=== PATIENT | male | born 1955 | race Caucasian/White ===

== ENCOUNTER 2021-06-25 11:36 | Inpatient (IN) | payer OTHER ==
[~2021-06-25] VITALS: Ht 170.2 cm; Wt 91.6 kg
[2021-06-25] MEDS ORDERED: ACETAMINOPHEN 325 MG TAB PO ONE (12:05)
--- NOTE | 2021-06-25 12:18 | REP ---
INDICATION: DYSPNEA/COUGH. COMPARISON: None. TECHNIQUE: Portable FINDINGS: The technique utilized in obtaining the radiograph has magnified the cardiac silhouette and accentuated the interstitial markings. There is a patchy opacity in the left upper lobe. The heart is not enlarged. The pleural angles are sharp. The osseous structures are within normal limits. IMPRESSION: Findings consistent with left upper lobe pneumonia. <Electronically signed by Tiburcio Matthews > 06/25/21 [id number]
[2021-06-25 12:33] LABS: BASO % 0.2 % (0.0-1.0); HEMATOCRIT 33.5 % (42.0-52.0); HEMOGLOBIN 10.3 g/dl (13.5-17.5); LYMPH # 1.2 10^3/uL (1.5-5.0); LYMPH % 8.4 % (24.0-44.0); MEAN CORPUSCULAR HEMOGLOBIN 23.7 pg (27.0-33.0); MEAN CORPUSCULAR HGB CONC 30.7 g/dl (32.0-36.5); MEAN CORPUSCULAR VOLUME 77.2 fl (80.0-96.0); MONO # 0.7 10^3/uL (0.0-0.8); MONO % 5.2 % (2.0-8.0); NEUTROPHILS # 12.2 10^3/uL (1.5-8.5); NEUTROPHILS % 85.2 % (36.0-66.0); PLATELET COUNT, AUTOMATED 179 10^3/uL (150-450); RED BLOOD COUNT 4.34 10^6/uL (4.30-6.10); WHITE BLOOD COUNT 14.4 10^3/uL (4.0-10.0)
[2021-06-25] MEDS ORDERED: cefTRIAXone SOD 1 GM in D5W MINI-BAG PLUS 50 ML IV ONE (12:45)
[2021-06-25] MEDS ORDERED: AZITHROMYCIN INJ 500 MG, VIAL MATE ADAPTER 1 EACH in NS 250 ML IV ONE (12:45)
[2021-06-25] MEDS ORDERED: [UNRECOGNIZED DRUG - REMARK] INH (12:47)
[2021-06-25 12:54] LABS: ALBUMIN 2.8 GM/DL (3.2-5.2); ALT/SGPT 18 U/L (12-78); BILIRUBIN,DIRECT 0.3 MG/DL (0.0-0.2); BILIRUBIN,TOTAL 0.9 MG/DL (0.2-1.0); BLOOD UREA NITROGEN 43 MG/DL (7-18); CALCIUM LEVEL 8.4 MG/DL (8.8-10.2); CARBON DIOXIDE LEVEL 21 MEQ/L (21-32); CHLORIDE LEVEL 97 MEQ/L (98-107); CK-MB VALUE MASS < 1.0 NG/ML (<3.6); CPK CREATINE PHOSPHOKINASE 394 U/L (39-308); CREATININE FOR GFR 2.84 MG/DL (0.70-1.30); GLOMERULAR FILTRATION RATE 23.9 (>49); GLUCOSE, FASTING 165 MG/DL (70-100); MB/CK RELATIVE INDEX 0.25 (< OR =4); POTASSIUM SERUM 4.7 MEQ/L (3.5-5.1); SODIUM LEVEL 128 MEQ/L (136-145); TOTAL PROTEIN 7.9 GM/DL (6.4-8.2); TROPONIN I < 0.02 NG/ML (< 0.10)
[2021-06-25 13:05] LABS: RSV AMPLIFICATION NEGATIVE (NEGATIVE)
[2021-06-25] MEDS ORDERED: SODIUM CHLORIDE 0.9% 1000ML IV STA (13:41)
--- NOTE | 2021-06-25 13:58 | HPEPDOC ---
[facility] Medical History & Physical Date of Admission Jun 25, 2021 Date of Service: Jun 25, 2021 History and Physical CHIEF COMPLAINT: Short of breath HISTORY OF PRESENT ILLNESS: 65-year-old male with a past medical history of hypertension and COPD. He is a very poor historian and cannot recollect his medications or his past medical history. He presented with worsening shortness of breath that began 5 days ago progressively got worse. He has associated chest pain, which is made worse with coughing and reproducible with palpation of the chest wall. He has reported a cough that is productive. He denies nausea, vomiting, abdominal pain, problems with urination or bowel movements. He has had no known sick contacts. He denies any Covid exposure. Of note, patient does not have any family reportedly. He wishes to remain full code. When he was asked in the event where he could not make any medical decisions who would make time for him he shrugged his shoulders. PAST MEDICAL HISTORY: This was limited because patient was a poor historian PAST SURGICAL HISTORY: Poor historian SOCIAL HISTORY: Lives alone. He denies smoking, drinking, and use of recreational drugs. FAMILY HISTORY: Did not recollect any family history ALLERGIES: Please see below. REVIEW OF SYSTEMS: 10 point review of system was negative except for what is noted in the HPI HOME MEDICATIONS: Please see below. PHYSICAL EXAMINATION: VITAL SIGNS: Please see below General: Lying in bed, no acute distress Head/Neck/Throat: Trachea midline, mucous membranes moist Eyes: Sclera anicteric, PERRLA Thorax: Normal respiratory effort on room air, lungs clear to auscultation bilaterally, no wheezes/rales/rhonchi Cardiovascular: Normal rate, regular rhythm, normal S1, S2; no S3, S4, rubs/gallops/murmurs Abdomen: Bowel sounds present, soft/nontender/nondistended Genitourinary: No CVA tenderness, no Snow in place Musculoskeletal: Moving all extremities, no edema Skin: Poor hygiene of feet Neurologic: AAOx3, speech fluent and goal-directed, no focal deficits, grossly intact LABORATORY DATA: See below. IMAGING: Chest x-ray noted left upper lobe pneumonia MICROBIOLOGY: Please see below. ASSESSMENT/PLAN: 65-year-old male presented with shortness of breath, productive cough, and reproducible chest pain #Sepsis -Meets SIRS criteria and no source of pneumonia. -Patient blood pressure initially recorded was within normal limits. Upon evaluation, his systolic blood pressure was in the 90s. We will initiate 30 cc/kg fluid resuscitation. -Ceftriaxone and azithromycin for pneumonia. Obtain sputum cultures, as well as strep pneumonia and Legionella antigens. #Pneumonia -Management as above #LUCILLE -In setting of sepsis. Continue IV fluids. Avoid nephrotoxic medications. #Hypertension -Hold off on ambulatory antihypertensives at this time. #COPD -We will initiate DuoNeb therapy, until we are able to reconcile his medications #DVT prophylaxis -Heparin subq Vital Signs Vital Signs Date Time Temp Pulse Resp B/P (MAP) Pulse Ox O2 Delivery O2 Flow Rate FiO2 06/25/21 12:30 Nasal Cannula 3.0 06/25/21 12:21 133 22 95 06/25/21 12:01 138/63 (88) 06/25/21 11:36 101.8 Laboratory Data Labs 24H Laboratory Tests 2 06/25/21 11:49: Immature Granulocyte % (Auto) 1.0, Neutrophils (%) (Auto) 85.2H, Lymphocytes (%) (Auto) 8.4L, Monocytes (%) (Auto) 5.2, Eosinophils (%) (Auto) 0.0, Basophils (%) (Auto) 0.2, Neutrophils # (Auto) 12.2H, Lymphocytes # (Auto) 1.2L, Monocytes # (Auto) 0.7, Eosinophils # (Auto) 0.0, Basophils # (Auto) 0.0, Nucleated Red Blood Cells % (auto) 0.0, Anion Gap 10, Glomerular Filtration Rate 23.9L, Calcium Level 8.4L, Total Bilirubin 0.9, Direct Bilirubin 0.3H, Aspartate Amino Transf (AST/SGOT) 22, Alanine Aminotransferase (ALT/SGPT) 18, Alkaline Phosphatase 89, Total Creatine Kinase 394H, Creatine Kinase MB < 1.0, Creatine Kinase MB Relative Index 0.25, Troponin I < 0.02, Total Protein 7.9, Albumin 2.8L, Albumin/Globulin Ratio 0.5 06/25/21 12:02: Lactic Acid Level 2.3*H, Coronavirus (COVID-19)(PCR) NEGATIVE, Influenza Type A (RT-PCR) NEGATIVE, Influenza Type B (RT-PCR) NEGATIVE, Respiratory Syncytial Virus (PCR) NEGATIVE CBC/BMP Laboratory Tests 06/25/21 11:49 Microbiology Microbiology 9/18/21 Blood Culture, Received Pending 06/25/21 Blood Culture, Received Pending Home Medications Scheduled Cholecalciferol (Vitamin D3) (Vitamin D3) 10 Mcg Tablet, 20 MCG PO DAILY Divalproex Sodium (Depakote) 500 Mg Tablet.dr, 500 MG PO BID Lisinopril/Hydrochlorothiazide (Lisinopril-Hctz 20-25 mg Tab) 1 Each Tablet, 4 TAB PO DAILY [facility] HAS 2 TABS DAILY, PT SAYS 4 TABS DAILY Omeprazole (Omeprazole) 20 Mg Capsule.dr, 20 MG PO BID Rosuvastatin Calcium (Rosuvastatin Calcium) 5 Mg Tablet, 5 MG PO QHS Tiotropium Br/Olodaterol HCl (Stiolto Respimat Inhal [place]) 4 Gm Mist.inhal, 2 PUFFS IH DAILY Scheduled PRN Albuterol Sulfate (Ventolin Hfa) 18 Gm Hfa.aer.ad, 2 PUFFS INH QID PRN for SO B/WHEEZING Diphenhydramine HCl (Diphenhydramine HCl) 25 Mg Capsule, 25 MG PO QHS PRN for SLEEP Allergies Coded Allergies: No Known Allergies (Unverified , 06/25/21) A-FIB/CHADSVASC A-FIB History Current/History of A-Fib/PAF?: No LAURA WOODSON M.D. Jun 25, 2021 13:43
[2021-06-25] MEDS: IPRATROPIUM 0.5MG/ALBUTEROL 2.5MG INH SOL UD 3ML (DUONEB) NEB SCH (14:00)
[2021-06-25] MEDS ORDERED: OMEP1CAP73 PO (14:13)
[2021-06-25] MEDS ORDERED: LISI20TA20 PO (14:13)
[2021-06-25] MEDS ORDERED: CHOL400T PO (14:13)
[2021-06-25] MEDS ORDERED: ROSU5TAB5 PO (14:13)
[2021-06-25] MEDS ORDERED: VENTAER INH (14:13)
[2021-06-25] MEDS ORDERED: STIO1AER IH (14:13)
[2021-06-25] MEDS ORDERED: DIPH25CA32 PO (14:13)
[2021-06-25] MEDS ORDERED: DEPA1TAB3 PO (14:13)
[2021-06-25] MEDS ORDERED: HOME MED LIST COMPLETE! XX SCH (14:15)
[2021-06-25] MEDS ORDERED: ALBUTEROL 90 MCG/ACT 8GM HFA INHALER INH PRN (14:25)
[2021-06-25] MEDS ORDERED: PILL CUTTER 1 EACH XX PRN (14:35)
--- NOTE | 2021-06-25 17:23 | ECGEPIP ---
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
[2021-06-25 18:06] VITALS: BP 149/76
[2021-06-25] MEDS: NS 1,000 ML IV SCH (19:43)
[2021-06-25 21:00] VITALS: O2SAT 96
[2021-06-25] MEDS: ACETAMINOPHEN 650MG ER TAB (TYLENOL ARTHRITIS) PO SCH (21:14)
[2021-06-25] MEDS: HEPARIN SOD (PORCINE) 5000UNITS/ML 1ML VIAL/SYRINGE SC SCH (21:14)
[2021-06-25] MEDS: OMEPRAZOLE 20 MG CAP PO SCH (21:15)
[2021-06-25] MEDS: DIVALPROEX 500 MG TAB PO SCH (21:15)
[2021-06-25] MEDS: THIAMINE 100 MG TAB PO SCH (21:15)
[2021-06-25] MEDS: ROSUVASTATIN 10 MG TAB (CRESTOR) PO SCH (21:16)
[2021-06-25 22:00] VITALS: BP 139/72
[2021-06-26] MEDS: NS 1,000 ML IV SCH ×3 (04:20→22:58)
[2021-06-26] MEDS: ACETAMINOPHEN 650MG ER TAB (TYLENOL ARTHRITIS) PO SCH (05:05)
[2021-06-26] MEDS: HEPARIN SOD (PORCINE) 5000UNITS/ML 1ML VIAL/SYRINGE SC SCH ×2 (05:06→13:55)
[2021-06-26 06:00] VITALS: BP 139/72
[2021-06-26 06:02] LABS: HEMATOCRIT 29.7 % (42.0-52.0); HEMOGLOBIN 9.1 g/dl (13.5-17.5); MEAN CORPUSCULAR HEMOGLOBIN 24.1 pg (27.0-33.0); MEAN CORPUSCULAR HGB CONC 30.6 g/dl (32.0-36.5); MEAN CORPUSCULAR VOLUME 78.8 fl (80.0-96.0); PLATELET COUNT, AUTOMATED 139 10^3/uL (150-450); RED BLOOD COUNT 3.77 10^6/uL (4.30-6.10); WHITE BLOOD COUNT 8.9 10^3/uL (4.0-10.0)
[2021-06-26 06:18] LABS: CREATININE FOR GFR 1.7 MG/DL (0.70-1.30); GLOMERULAR FILTRATION RATE 43.3 (>49); PHOSPHORUS LEVEL 2.8 MG/DL (2.5-4.9); POTASSIUM SERUM 4.3 MEQ/L (3.5-5.1)
[2021-06-26] MEDS: IPRATROPIUM 0.5MG/ALBUTEROL 2.5MG INH SOL UD 3ML (DUONEB) NEB SCH ×3 (07:34→20:42)
[2021-06-26] MEDS: DIVALPROEX 500 MG TAB PO SCH ×2 (07:56→21:21)
[2021-06-26] MEDS: THIAMINE 100 MG TAB PO SCH (07:56)
[2021-06-26] MEDS: OMEPRAZOLE 20 MG CAP PO SCH ×2 (07:56→21:21)
--- NOTE | 2021-06-26 10:31 | IPNPDOC ---
Subjective Date Seen The patient was seen on 06/26/21. Subjective Chief Complaint/HPI Patient was seen and examined bedside this morning. He reported feeling "100% better" and stated he was no longer short of breath, and his reproducible chest pain from coughing had resolved. However, he still requires 02 and overnight had a temp. Objective Physical Examination Other physical findings General: Lying in bed, no acute distress Head/Neck/Throat: Trachea midline, mucous membranes moist Eyes: Sclera anicteric, no erythema or discharge appreciated b/l Thorax: On 3L nc, lungs clear to auscultation bilaterally, no wheezes/rales/rhonchi Cardiovascular: Normal rate, regular rhythm, normal S1, S2; no S3, S4, rubs/gallops/murmurs Abdomen: Bowel sounds present, soft/nontender/nondistended Genitourinary: No CVA tenderness, no Snow in place Musculoskeletal: Moving all extremities, no edema Skin: Poor hygiene of feet Neurologic: AAOx3, speech fluent and goal-directed, no focal deficits, grossly intact Assessment /Plan Assessment #Sepsis -Meets SIRS criteria and no source of pneumonia. -Remains hemodynamically stable. Lactic acid has down trended. Has a temp likely the reason for his tachy. -Continue w/ Ceftriaxone and azithromycin for pneumonia. Obtain sputum cultures, as well as strep pneumonia and Legionella antigens. #Pneumonia -Management as above #Hypoxia -Likely due to PNA. -concern for PE, Wells score is 3 and d-dimmer is elevated. However, due to his renal function unable to do a cta of the chest, and no one in house to do v/q scan. stat For now, will start pt systemic anticoagulation empirically until we are able to obtain imaging. #LUCILLE -In setting of sepsis. Continue IV fluids. Avoid nephrotoxic medications. #Hypertension -Hold off on ambulatory antihypertensives at this time. #COPD -We will initiate DuoNeb therapy, until we are able to reconcile his medications #DVT prophylaxis -Heparin subq Plan/VTE VTE Prophylaxis Ordered?: Yes VS, I&O, 24H, Fishbone Vital Signs/I&O Vital Signs Date Time Temp Pulse Resp B/P (MAP) Pulse Ox O2 Delivery O2 Flow Rate FiO2 06/26/21 06:44 99.7 06/26/21 06:00 115 20 139/72 (94) 92 Nasal Cannula 3.0 I&O- Last 24 Hours up to 6 AM 06/26/21 06:00 Intake Total 3180 ml Output Total 0 ml Balance 3180 ml Laboratory Data 24H LABS Laboratory Tests 2 06/25/21 11:49: Immature Granulocyte % (Auto) 1.0, Neutrophils (%) (Auto) 85.2H, Lymphocytes (%) (Auto) 8.4L, Monocytes (%) (Auto) 5.2, Eosinophils (%) (Auto) 0.0, Basophils (%) (Auto) 0.2, Neutrophils # (Auto) 12.2H, Lymphocytes # (Auto) 1.2L, Monocytes # (Auto) 0.7, Eosinophils # (Auto) 0.0, Basophils # (Auto) 0.0, Nucleated Red Blood Cells % (auto) 0.0, Anion Gap 10, Glomerular Filtration Rate 23.9L, Calcium Level 8.4L, Total Bilirubin 0.9, Direct Bilirubin 0.3H, Aspartate Amino Transf (AST/SGOT) 22, Alanine Aminotransferase (ALT/SGPT) 18, Alkaline Phosphatase 89, Total Creatine Kinase 394H, Creatine Kinase MB < 1.0, Creatine Kinase MB Relative Index 0.25, Troponin I < 0.02, Total Protein 7.9, Albumin 2.8L, Albumin/Globulin Ratio 0.5 06/25/21 12:02: Lactic Acid Level 2.3*H, Procalcitonin 8.88, Coronavirus (COVID-19)(PCR) NEGATIVE, Influenza Type A (RT-PCR) NEGATIVE, Influenza Type B (RT-PCR) NEGATIVE, Respiratory Syncytial Virus (PCR) NEGATIVE 06/25/21 14:26: Troponin I 0.02 06/25/21 16:54: Lactic Acid Followup at 4 Hours 2.1*H 06/25/21 16:55: Troponin I < 0.02 06/25/21 18:41: Methicillin-Resist S.aureus DNA PCR NOT DETECTED 06/25/21 22:06: Lactic Acid Level 1.0 06/26/21 05:34: Nucleated Red Blood Cells % (auto) 0.0, Anion Gap 7L, Glomerular Filtration Rate 43.3L, Calcium Level 8.0L, Phosphorus Level 2.8, Magnesium Level 2.0 06/26/21 08:15: CBC/BMP Laboratory Tests 06/25/21 11:49 06/26/21 05:34 Microbiology Microbiology 06/25/21 Blood Culture, Received Pending 06/25/21 Blood Culture, Received Pending LAURA WOODSON M.D. Jun 26, 2021 10:16
[2021-06-26] MEDS: guaiFENesin SYRUP 200 MG/10 ML UDC PO PRN (12:45)
[2021-06-26] MEDS ORDERED: cefTRIAXone SOD 1 GM in D5W MINI-BAG PLUS 50 ML IV SCH (13:00)
[2021-06-26] MEDS ORDERED: ACETAMINOPHEN 500 MG TAB PO ONE (13:00)
[2021-06-26] MEDS ORDERED: AZITHROMYCIN INJ 500 MG, VIAL MATE ADAPTER 1 EACH in NS 250 ML IV SCH (14:00)
[2021-06-26 14:30] VITALS: BP 141/73
[2021-06-26] MEDS: PIPERACILLIN/TAZOBACTAM SOD 3.375 GM in D5W MINI-BAG PLUS 50 ML IV SCH ×2 (17:59→23:32)
[2021-06-26 21:00] VITALS: O2SAT 93
[2021-06-26] MEDS: APIXABAN 5 MG TAB (ELIQUIS) PO SCH (21:20)
[2021-06-26] MEDS: ROSUVASTATIN 10 MG TAB (CRESTOR) PO SCH (21:21)
[2021-06-26 22:00] VITALS: BP 138/72
[2021-06-27] VITALS (9 sets, daily range): BP systolic 95–140; BP diastolic 56–65; O2SAT 86–90
[2021-06-27] MEDS: IPRATROPIUM 0.5MG/ALBUTEROL 2.5MG INH SOL UD 3ML (DUONEB) NEB SCH ×6 (01:34→23:58)
[2021-06-27] MEDS: NS 1,000 ML IV SCH ×3 (03:20→19:20)
[2021-06-27] MEDS: PIPERACILLIN/TAZOBACTAM SOD 3.375 GM in D5W MINI-BAG PLUS 50 ML IV SCH ×3 (05:33→17:22)
[2021-06-27 06:17] LABS: HEMATOCRIT 26.5 % (42.0-52.0); HEMOGLOBIN 8.1 g/dl (13.5-17.5); MEAN CORPUSCULAR HEMOGLOBIN 24.7 pg (27.0-33.0); MEAN CORPUSCULAR HGB CONC 30.6 g/dl (32.0-36.5); MEAN CORPUSCULAR VOLUME 80.8 fl (80.0-96.0); PLATELET COUNT, AUTOMATED 125 10^3/uL (150-450); RED BLOOD COUNT 3.28 10^6/uL (4.30-6.10); WHITE BLOOD COUNT 4.7 10^3/uL (4.0-10.0)
[2021-06-27] MEDS: ACETAMINOPHEN TAB 650MG DOSE (2X325MG) PO PRN (06:20)
[2021-06-27 06:33] LABS: BLOOD UREA NITROGEN 19 MG/DL (7-18); CALCIUM LEVEL 7.8 MG/DL (8.8-10.2); CARBON DIOXIDE LEVEL 26 MEQ/L (21-32); CHLORIDE LEVEL 103 MEQ/L (98-107); CREATININE FOR GFR 1.24 MG/DL (0.70-1.30); GLOMERULAR FILTRATION RATE > 60.0 (>49); GLUCOSE, FASTING 123 MG/DL (70-100); MAGNESIUM LEVEL 1.9 MG/DL (1.8-2.4); PHOSPHORUS LEVEL 1.9 MG/DL (2.5-4.9); POTASSIUM SERUM 4.2 MEQ/L (3.5-5.1); SODIUM LEVEL 137 MEQ/L (136-145)
[2021-06-27] MEDS ORDERED: ISOVUE-370 76% 100ML VIAL As Ordered ONE (07:15)
[2021-06-27] MEDS: OMEPRAZOLE 20 MG CAP PO SCH ×2 (08:16→21:55)
[2021-06-27] MEDS: APIXABAN 5 MG TAB (ELIQUIS) PO SCH (08:16)
[2021-06-27] MEDS: methylPREDNISolone 40MG 1ML VIAL IV SCH ×2 (08:16→17:21)
[2021-06-27] MEDS: DIVALPROEX 500 MG TAB PO SCH ×2 (08:16→21:57)
[2021-06-27] MEDS: THIAMINE 100 MG TAB PO SCH (08:16)
[2021-06-27] MEDS ORDERED: K-PHOS ORIGINAL (POT.ACID PHOSPHATE) 500MG TAB PO ONE (09:00)
[2021-06-27] MEDS ORDERED: IBUPROFEN 600MG TAB PO ONE (10:25)
--- NOTE | 2021-06-27 10:32 | REP ---
INDICATION: r/o pe. COMPARISON: None. TECHNIQUE: Imaging protocol: CT angiography of the chest with IV contrast. Contiguous 3 mm thick axial projection images were obtained through the chest. 2D sagittal and coronal reconstructions were performed. Radiation optimization: All CT scans at this facility use at least one of these dose optimization techniques: automated exposure control; mA and/or kV adjustment per patient size (includes targeted exams where dose is matched to clinical indication); or iterative reconstruction. CONTRAST: 75 cc Isovue 370, IV. FINDINGS: Lower neck: The thyroid gland is normal. There is no supraclavicular lymphadenopathy. Mediastinum: No abnormal masses or lymphadenopathy. Heart/thoracic aorta/pulmonary arterial tree: The heart size is normal. There is no pericardial effusion. There is calcific vascular disease of the thoracic aorta and coronary arteries. There is no thoracic aortic aneurysm or aortic dissection. There are no filling defects in the pulmonary arterial tree. Upper abdomen: Fatty liver infiltration. Calcific vascular disease of the abdominal aorta. Spleen measures 12.6 cm in axial dimension. There are small cysts in both kidneys indeterminate by density. Thoracic esophagus: Normal. Chest wall and axilla: There is mild bilateral gynecomastia. There are few reactive axillary lymph nodes bilaterally. There are no significant bony abnormalities of the chest. Lung parenchyma: There is dense airspace consolidation in the upper lobe of the left lung centered in the lingula. There is chronic interstitial lung disease with posterior basilar subpleural reticulation and a few areas of honeycombing. There is posterior pleural thickening bilaterally. There are no significant pleural effusions. IMPRESSION: 1. Lingular lobar pneumonia. 2. Chronic interstitial lung disease. 3. No evidence of pulmonary emboli. 4. Calcific vascular disease of the thoracoabdominal aorta and coronary arteries. 5. Fatty liver infiltration. 6. Mild splenomegaly. 7. Other findings as noted. <Electronically signed by Grzegorz Cosby > 06/27/21 [id number]
--- NOTE | 2021-06-27 10:38 | IPNPDOC ---
Subjective Date Seen The patient was seen on 06/27/21. Subjective Chief Complaint/HPI Patient was seen and examined at bedside this morning. He reports having fever, chills, and chest pain which is reproducible with cough. He denied headaches, palpitations, abdominal pain, nausea, vomiting, problems with urination or bowel movements. Overnight patient had continuous fevers. Objective Physical Examination Other physical findings Other physical findings General: Lying in bed, no acute distress Head/Neck/Throat: Trachea midline, mucous membranes moist Eyes: Sclera anicteric, no erythema or discharge appreciated b/l Thorax: On 3L nc, lungs clear to auscultation bilaterally, no wheezes/rales/rhonchi Cardiovascular: Normal rate, regular rhythm, normal S1, S2; no S3, S4, rubs/ gallops/murmurs Abdomen: Bowel sounds present, soft/nontender/nondistended Genitourinary: No CVA tenderness, no Snow in place Musculoskeletal: Moving all extremities, no edema Skin: Poor hygiene of feet Neurologic: AAOx3, speech fluent and goal-directed, no focal deficits, grossly intact Assessment /Plan Assessment #Sepsis -Meets SIRS criteria and source of pneumonia. -Remains hemodynamically stable. Lactic acid has down trended. Has a temp likely the reason for his tachy. -Patient continued to spike fevers therefore antibiotics were broadened to Zosyn in addition to azithromycin. Patient has been unable to provide a sputum sample for cultures. Respiratory panel pending. -We will need to apply cooling measures for patient's fever. If proctitis does not work he will need a cooling blanket. #Pneumonia -Management as above #COPD exacerbation -This morning he was in COPD exacerbation. Increase frequency of DuoNeb therapy to q4hrs, add IV steroids #Hypoxia -Likely due to PNA and COPD exacerbation -concern for PE, Wells score is 3 and d-dimmer is elevated. CTA was done this morning and negative for PE. #LUCILLE -Resolved. This was likely prerenal azotemia in setting of sepsis. Considering he got contrast for his CTA we will continue IV fluids today. #Hypertension -Hold off on ambulatory antihypertensives at this time. #DVT prophylaxis -Heparin subcu Plan/VTE VTE Prophylaxis Ordered?: Yes VS, I&O, 24H, Fishbone Vital Signs/I&O Vital Signs Date Time Temp Pulse Resp B/P (MAP) Pulse Ox O2 Delivery O2 Flow Rate FiO2 06/27/21 07:01 102.0 128/58 (81) 06/27/21 06:00 108 20 88 Nasal Cannula 6.0 I&O- Last 24 Hours up to 6 AM 06/27/21 05:59 Intake Total 2290 ml Output Total 2075 ml Balance 215 ml Laboratory Data 24H LABS Laboratory Tests 2 06/26/21 14:43: D-Dimer, Quantitative 2681.84H 06/27/21 05:39: Nucleated Red Blood Cells % (auto) 0.0, Anion Gap 8, Glomerular Filtration Rate > 60.0, Calcium Level 7.8L, Phosphorus Level 1.9#L, Magnesium Level 1.9 CBC/BMP Laboratory Tests 06/27/21 05:39 Microbiology Microbiology 06/25/21 Blood Culture - Preliminary, Resulted No growth after 24 hours . All specim... 06/25/21 Blood Culture - Preliminary, Resulted No growth after 24 hours . All specim... LAURA WOODSON M.D. Jun 27, 2021 10:36
[2021-06-27] MEDS: DOXYCYCLINE HYCLATE 100MG TABLET PO SCH ×2 (11:28→21:55)
[2021-06-27 14:41] LABS: ABG BASE EXCESS -2.3 (-2.0-2.0); ABG O2 SATURATION 88.5 % (95.0-99.0); ABG PARTIAL PRESSURE CO2 41.6 mmHg (35.0-45.0); ABG PARTIAL PRESSURE O2 60.8 mmHg (75.0-100.0); ABG STANDARD HCO3 22.4 MEQ/L (22.0-26.0); ABG TOTAL CO2 24.3 MEQ/L (23.0-31.0)
[2021-06-27] MEDS: ROSUVASTATIN 10 MG TAB (CRESTOR) PO SCH (21:55)
[2021-06-27] MEDS: HEPARIN SOD (PORCINE) 5000UNITS/ML 1ML VIAL/SYRINGE SQ SCH (21:57)
[2021-06-28] VITALS (7 sets, daily range): BP systolic 115–140; BP diastolic 56–64; O2SAT 93
[2021-06-28] MEDS: PIPERACILLIN/TAZOBACTAM SOD 3.375 GM in D5W MINI-BAG PLUS 50 ML IV SCH ×5 (00:19→23:21)
[2021-06-28] MEDS: methylPREDNISolone 40MG 1ML VIAL IV SCH ×4 (00:19→23:22)
[2021-06-28] MEDS: NS 1,000 ML IV SCH (03:03)
[2021-06-28] MEDS: IPRATROPIUM 0.5MG/ALBUTEROL 2.5MG INH SOL UD 3ML (DUONEB) NEB SCH ×5 (03:40→19:24)
[2021-06-28] MEDS: HEPARIN SOD (PORCINE) 5000UNITS/ML 1ML VIAL/SYRINGE SQ SCH ×3 (05:28→20:10)
[2021-06-28 06:11] LABS: HEMATOCRIT 27.6 % (42.0-52.0); HEMOGLOBIN 8.3 g/dl (13.5-17.5); MEAN CORPUSCULAR HEMOGLOBIN 24.3 pg (27.0-33.0); MEAN CORPUSCULAR HGB CONC 30.1 g/dl (32.0-36.5); MEAN CORPUSCULAR VOLUME 80.7 fl (80.0-96.0); PLATELET COUNT, AUTOMATED 132 10^3/uL (150-450); RED BLOOD COUNT 3.42 10^6/uL (4.30-6.10); WHITE BLOOD COUNT 5.1 10^3/uL (4.0-10.0)
[2021-06-28 06:40] LABS: BLOOD UREA NITROGEN 23 MG/DL (7-18); CALCIUM LEVEL 8.5 MG/DL (8.8-10.2); CARBON DIOXIDE LEVEL 23 MEQ/L (21-32); CHLORIDE LEVEL 110 MEQ/L (98-107); CREATININE FOR GFR 1.03 MG/DL (0.70-1.30); GLOMERULAR FILTRATION RATE > 60.0 (>49); GLUCOSE, FASTING 222 MG/DL (70-100); MAGNESIUM LEVEL 2.2 MG/DL (1.8-2.4); PHOSPHORUS LEVEL 2.7 MG/DL (2.5-4.9); POTASSIUM SERUM 4.3 MEQ/L (3.5-5.1); SODIUM LEVEL 140 MEQ/L (136-145)
[2021-06-28] MEDS: OMEPRAZOLE 20 MG CAP PO SCH ×2 (08:11→20:09)
[2021-06-28] MEDS: DOXYCYCLINE HYCLATE 100MG TABLET PO SCH ×2 (08:12→20:09)
[2021-06-28] MEDS: THIAMINE 100 MG TAB PO SCH (08:12)
[2021-06-28] MEDS: DIVALPROEX 500 MG TAB PO SCH ×2 (08:45→20:09)
[2021-06-28] MEDS: ACETAMINOPHEN TAB 650MG DOSE (2X325MG) PO PRN (09:08)
[2021-06-28 15:09] LABS: MYCOPLASMA PNEUMONIAE IgG 1494 U/mL (0-99); MYCOPLASMA PNEUMONIAE IgM <770 U/mL (0-769)
[2021-06-28] MEDS: ROSUVASTATIN 10 MG TAB (CRESTOR) PO SCH (20:09)
[2021-06-28] MEDS ORDERED: GLUCOSE 4GM CHEW TABLET PO PRN (21:30)
[2021-06-28] MEDS ORDERED: DEXTROSE 50% 50 ML SYRINGE IV PRN (21:30)
[2021-06-28] MEDS ORDERED: GLUCAGON INJ 1MG VIAL SC PRN (21:30)
[2021-06-28] MEDS: HumaLOG INSULIN (NovoLOG) PER UNIT SC SCH (21:53)
[2021-06-29] VITALS (23 sets, daily range): BP systolic 135–144; BP diastolic 59–65; O2SAT 86–97
[2021-06-29] MEDS: IPRATROPIUM 0.5MG/ALBUTEROL 2.5MG INH SOL UD 3ML (DUONEB) NEB SCH ×6 (00:51→23:28)
[2021-06-29 05:19] LABS: HEMATOCRIT 26.3 % (42.0-52.0); HEMOGLOBIN 7.9 g/dl (13.5-17.5); MEAN CORPUSCULAR HEMOGLOBIN 23.9 pg (27.0-33.0); MEAN CORPUSCULAR VOLUME 79.7 fl (80.0-96.0); PLATELET COUNT, AUTOMATED 137 10^3/uL (150-450); WHITE BLOOD COUNT 8.2 10^3/uL (4.0-10.0)
[2021-06-29 05:21] LABS: BLOOD UREA NITROGEN 26 MG/DL (7-18); CALCIUM LEVEL 8.4 MG/DL (8.8-10.2); CARBON DIOXIDE LEVEL 24 MEQ/L (21-32); CHLORIDE LEVEL 105 MEQ/L (98-107); CREATININE FOR GFR 1.05 MG/DL (0.70-1.30); GLOMERULAR FILTRATION RATE > 60.0 (>49); GLUCOSE, FASTING 285 MG/DL (70-100); MAGNESIUM LEVEL 1.9 MG/DL (1.8-2.4); PHOSPHORUS LEVEL 2.6 MG/DL (2.5-4.9); POTASSIUM SERUM 4.3 MEQ/L (3.5-5.1); SODIUM LEVEL 139 MEQ/L (136-145)
[2021-06-29] MEDS: HEPARIN SOD (PORCINE) 5000UNITS/ML 1ML VIAL/SYRINGE SQ SCH ×3 (05:21→20:14)
[2021-06-29] MEDS: PIPERACILLIN/TAZOBACTAM SOD 3.375 GM in D5W MINI-BAG PLUS 50 ML IV SCH ×3 (05:21→18:27)
[2021-06-29] MEDS: DOXYCYCLINE HYCLATE 100MG TABLET PO SCH ×2 (08:29→20:13)
[2021-06-29] MEDS: OMEPRAZOLE 20 MG CAP PO SCH ×2 (08:29→20:13)
[2021-06-29] MEDS: DIVALPROEX 500 MG TAB PO SCH ×2 (08:30→20:14)
[2021-06-29] MEDS: THIAMINE 100 MG TAB PO SCH (08:30)
[2021-06-29] MEDS: methylPREDNISolone 40MG 1ML VIAL IV SCH ×2 (08:30→15:33)
--- NOTE | 2021-06-29 11:20 | IPNPDOC ---
Subjective Date Seen The patient was seen on 06/29/21. Subjective Chief Complaint/HPI Patient seen and examined at bedside this morning. He continues to complain of a cough that is dry in nature, but improvement in his breathing. He denies chest pain, abdominal pain, nausea, no vomiting, problem with urination and bowel movements. Overnight no acute events were reported. Objective Physical Examination Other physical findings General: Lying in bed, no acute distress Head/Neck/Throat: Trachea midline, mucous membranes moist Eyes: Sclera anicteric, no erythema or discharge appreciated b/l Thorax: On 3L nc, wheezing appreciated bilaterally Cardiovascular: Normal rate, regular rhythm, normal S1, S2; no S3, S4, rubs/gallops/murmurs Abdomen: Bowel sounds present, soft/nontender/nondistended Genitourinary: No CVA tenderness, no Snow in place Musculoskeletal: Moving all extremities, no edema Skin: Poor hygiene of feet Neurologic: AAOx3, speech fluent and goal-directed, no focal deficits, grossly intact Assessment /Plan Assessment #Sepsis -Meet SIRS criteria and source of pneumonia. -Remains hemodynamically stable. Lactic acid has down trended. -Patient continued to spike fevers (on ceftriaxone and azithromycin). Therefore antibiotics were broadened to Zosyn in addition to doxycycline. Today, his respiratory panel resulted to be positive for Legionella - will narrow antibiotics to Levofloxacin for a total of 10 days of antibiotics. #Pneumonia -Management as above #COPD exacerbation -Continue with DuoNeb therapy to q4hr, Solu-Medrol 40 mg every 8 hours. #Hypoxia -Decreasing oxygen requirements -Likely due to PNA and COPD exacerbation -CTA was done this morning and negative for PE. #Microcytic anemia -Follow-up on iron panel and fecal occult blood test. #LUCILLE -Resolved. This was likely prerenal azotemia in setting of sepsis. #Hypertension -Hold off on ambulatory antihypertensives at this time, blood pressure is low normal. #DVT prophylaxis -Heparin subcu Plan/VTE VTE Prophylaxis Ordered?: Yes VS, I&O, 24H, Fishbone Vital Signs/I&O Vital Signs Date Time Temp Pulse Resp B/P (MAP) Pulse Ox O2 Delivery O2 Flow Rate FiO2 06/29/21 09:00 93 Nasal Cannula 3.0 06/29/21 07:22 98.3 100 17 144/64 (90) 06/28/21 04:00 50 I&O- Last 24 Hours up to 6 AM 06/29/21 06:00 Intake Total 1480 ml Output Total 1000 ml Balance 480 ml Laboratory Data 24H LABS Laboratory Tests 2 06/28/21 21:20: Bedside Glucose (Misc Panel) 301H 06/29/21 04:44: Nucleated Red Blood Cells % (auto) 1.0H, Anion Gap 10, Glomerular Filtration Rate > 60.0, Calcium Level 8.4L, Phosphorus Level 2.6, Magnesium Level 1.9 CBC/BMP Laboratory Tests 06/29/21 04:44 Microbiology Microbiology 06/27/21 Blood Culture - Preliminary, Resulted No growth after 24 hours . All specim... 06/27/21 Blood Culture - Preliminary, Resulted No growth after 24 hours . All specim... 06/25/21 Blood Culture - Preliminary, Resulted No Growth after 72 hours. All specime... 06/25/21 Blood Culture - Preliminary, Resulted No Growth after 72 hours. All specime... LAURA WOODSON M.D. Jun 29, 2021 11:15
[2021-06-29] MEDS: guaiFENesin SYRUP 200 MG/10 ML UDC PO PRN (13:11)
[2021-06-29] MEDS: ACETAMINOPHEN TAB 650MG DOSE (2X325MG) PO PRN (13:11)
[2021-06-29] MEDS: ROSUVASTATIN 10 MG TAB (CRESTOR) PO SCH (20:13)
[2021-06-29 21:07] LABS: BODY FLUID CULTURE Not indicated. (.); ORGANISM ID Not indicated. (.); SPECIMEN SOURCE Urine (.); URINE STREP PNEUMONIAE ANTIGEN Negative (Negative)
[2021-06-29] MEDS: HumaLOG INSULIN (NovoLOG) PER UNIT SC SCH (21:07)
[2021-06-30] VITALS: BP 163/75
[2021-06-30] MEDS: PIPERACILLIN/TAZOBACTAM SOD 3.375 GM in D5W MINI-BAG PLUS 50 ML IV SCH (01:20)
[2021-06-30] MEDS: methylPREDNISolone 40MG 1ML VIAL IV SCH ×4 (01:21→23:29)
[2021-06-30] MEDS: LEVEMIR (INSULIN DETEMIR) 1 UNITS/0.01ML SC SCH ×2 (02:00→21:39)
[2021-06-30] MEDS: IPRATROPIUM 0.5MG/ALBUTEROL 2.5MG INH SOL UD 3ML (DUONEB) NEB SCH ×5 (03:28→23:41)
[2021-06-30 04:00] VITALS: BP 152/72
[2021-06-30 04:30] LABS: HEMATOCRIT 26.9 % (42.0-52.0); HEMOGLOBIN 8.2 g/dl (13.5-17.5); MEAN CORPUSCULAR HGB CONC 30.5 g/dl (32.0-36.5); MEAN CORPUSCULAR VOLUME 78.9 fl (80.0-96.0); PLATELET COUNT, AUTOMATED 172 10^3/uL (150-450); RED BLOOD COUNT 3.41 10^6/uL (4.30-6.10); WHITE BLOOD COUNT 6.9 10^3/uL (4.0-10.0)
[2021-06-30 04:55] LABS: ALBUMIN 2.2 GM/DL (3.2-5.2); ALT/SGPT 27 U/L (12-78); BILIRUBIN,TOTAL 0.3 MG/DL (0.2-1.0); BLOOD UREA NITROGEN 27 MG/DL (7-18); CALCIUM LEVEL 9.1 MG/DL (8.8-10.2); CARBON DIOXIDE LEVEL 27 MEQ/L (21-32); CHLORIDE LEVEL 102 MEQ/L (98-107); CREATININE FOR GFR 1.07 MG/DL (0.70-1.30); GLOMERULAR FILTRATION RATE > 60.0 (>49); GLUCOSE, FASTING 351 MG/DL (70-100); MAGNESIUM LEVEL 2.1 MG/DL (1.8-2.4); PHOSPHORUS LEVEL 2.9 MG/DL (2.5-4.9); POTASSIUM SERUM 4.3 MEQ/L (3.5-5.1); SODIUM LEVEL 137 MEQ/L (136-145); TOTAL PROTEIN 6.9 GM/DL (6.4-8.2)
[2021-06-30 05:00] LABS: LYMPHOCYTES 17 % (16-44); MONOCYTES 5 % (0-5); NEUTROPHILS 76 % (28-66); PERCENT SATURATION 16.1 % (19.7-50.0); PLATELET ESTIMATE NORMAL (NORMAL)
[2021-06-30 05:01] LABS: ANISOCYTOSIS 4+
[2021-06-30 05:02] LABS: HYPOCHROMASIA 1+; MICROCYTOSIS 1+; STOMATOCYTES 1+
[2021-06-30 05:03] LABS: OVALOCYTES 1+
[2021-06-30] MEDS: HEPARIN SOD (PORCINE) 5000UNITS/ML 1ML VIAL/SYRINGE SQ SCH ×3 (05:05→21:38)
--- NOTE | 2021-06-30 07:51 | IPNPDOC ---
Text Note Date of Service The patient was seen on 06/30/21. NOTE Hospitalist Progress Note Subjective: Patient is seated in the hospital bed when I entered the room. He is awake, alert, and a good historian. He states that he is feeling much better today than when he had entered, and has shown continual improvement. He continues to have a dry nonproductive release minimally productive cough. He also explains to me that he has a long walk from where he ro[place]ario to his apartment, which is also not on the ground floor therefore he asked a send quite a few stairs to get there. He is not on oxygen at home. Objective: General: Awake, alert, oriented 3. Not in any acute distress. HEENT: Head normocephalic, atraumatic, sclera are nonicteric. Hearing is grossly intact to conversation. Respiratory: Diminished throughout, however I cannot appreciate any wheezes, rales, or rhonchi. Cardiovascular: Regular rate and rhythm, with no rubs, gallops, or murmur. Abdomen: Soft, nontender, nondistended, no hepatosplenomegaly appreciated. Bowel sounds present. Extremities: 2+ pulses in the radial and dorsalis pedis bilaterally. No evidence of clubbing or cyanosis. Assessment/Plan: Legionella pneumonia COPD exacerbation Acute hypoxic respiratory failure -Patient was discovered to have Legionella just yesterday, therefore his antibiotics were switched over to levofloxacin which is going to start today. He can certainly tolerate oral antibiotics, therefore this will be used for total of 10 additional days. -Patient has not had any events on monitor. Will discontinue telemetry and transfer him to the Med/Surg floor Microcytic anemia -He is still requiring oxygen, not on oxygen at home. Physical deconditioning -PT and OT evaluations have been requested. He will need to continue working with them as he does have a long walking quite a few stairs between where he rosario his car and his home. Hypertension -Pressures are still labile, continue to hold home meds Sepsis -improving Lactic acidosis, resolved Fever, resolved Acute kidney injury, resolved DVT prophylaxis, heparin VS,Fishbone, I+O VS, Fishbone, I+O Laboratory Tests 06/30/21 03:52 Vital Signs Date Time Temp Pulse Resp B/P (MAP) Pulse Ox O2 Delivery O2 Flow Rate FiO2 06/30/21 04:00 98.0 95 16 152/72 (98) 92 Nasal Cannula 3.0 06/28/21 04:00 50 I&O- Last 24 Hours up to 6 AM 06/30/21 06:00 Intake Total 1350 ml Output Total 1500 ml Balance -150 ml JANNIE LEE DO Jun 30, 2021 07:51
[2021-06-30 08:07] VITALS: BP 174/77
[2021-06-30] MEDS: DIVALPROEX 500 MG TAB PO SCH ×2 (08:46→21:38)
[2021-06-30] MEDS: OMEPRAZOLE 20 MG CAP PO SCH ×2 (08:46→21:38)
[2021-06-30] MEDS: IBUPROFEN 600MG TAB PO PRN (08:47)
[2021-06-30] MEDS: THIAMINE 100 MG TAB PO SCH (08:47)
[2021-06-30] MEDS ORDERED: LevoFLOXacin IV 750 MG in IV 1 EA IV SCH (09:00)
[2021-06-30] MEDS ORDERED: LevoFLOXacin 750 MG TABLET PO ONE (09:00)
[2021-06-30] MEDS: HumaLOG INSULIN (NovoLOG) PER UNIT SC SCH ×3 (13:00→21:38)
[2021-06-30 14:30] VITALS: BP 179/88
[2021-06-30 21:30] VITALS: BP 165/84
[2021-06-30] MEDS: ROSUVASTATIN 10 MG TAB (CRESTOR) PO SCH (21:37)
[2021-07-01] MEDS: IPRATROPIUM 0.5MG/ALBUTEROL 2.5MG INH SOL UD 3ML (DUONEB) NEB SCH ×5 (03:47→18:04)
[2021-07-01 04:33] VITALS: BP 150/82
[2021-07-01 05:25] LABS: HEMATOCRIT 28.7 % (42.0-52.0); HEMOGLOBIN 8.7 g/dl (13.5-17.5); MEAN CORPUSCULAR HEMOGLOBIN 24.2 pg (27.0-33.0); MEAN CORPUSCULAR HGB CONC 30.3 g/dl (32.0-36.5); MEAN CORPUSCULAR VOLUME 79.7 fl (80.0-96.0); PLATELET COUNT, AUTOMATED 218 10^3/uL (150-450)
[2021-07-01 05:46] LABS: BLOOD UREA NITROGEN 30 MG/DL (7-18); CALCIUM LEVEL 8.5 MG/DL (8.8-10.2); CARBON DIOXIDE LEVEL 27 MEQ/L (21-32); CHLORIDE LEVEL 100 MEQ/L (98-107); CREATININE FOR GFR 1.04 MG/DL (0.70-1.30); GLOMERULAR FILTRATION RATE > 60.0 (>49); GLUCOSE, FASTING 381 MG/DL (70-100); POTASSIUM SERUM 4.8 MEQ/L (3.5-5.1); SODIUM LEVEL 135 MEQ/L (136-145)
[2021-07-01] MEDS: LevoFLOXacin 750 MG TABLET PO SCH (06:04)
[2021-07-01] MEDS: HEPARIN SOD (PORCINE) 5000UNITS/ML 1ML VIAL/SYRINGE SQ SCH ×3 (06:04→21:44)
[2021-07-01] MEDS: THIAMINE 100 MG TAB PO SCH (08:51)
[2021-07-01] MEDS: HumaLOG INSULIN (NovoLOG) PER UNIT SC SCH ×4 (08:51→21:44)
[2021-07-01] MEDS: DIVALPROEX 500 MG TAB PO SCH ×2 (08:51→21:43)
[2021-07-01] MEDS: methylPREDNISolone 40MG 1ML VIAL IV SCH ×2 (08:51→16:33)
[2021-07-01] MEDS: OMEPRAZOLE 20 MG CAP PO SCH ×2 (08:51→21:43)
[2021-07-01 14:00] VITALS: BP 149/81
--- NOTE | 2021-07-01 19:07 | IPNPDOC ---
Text Note Date of Service The patient was seen on 07/01/21. NOTE Hospitalist Progress Note Subjective: Patient is certainly in good spirits today. He was up walking with physical therapy, and was able to walk approximately retirement around the floor. Nevertheless, they did not attempt stairs today, and the distance he walked is probably not even the entire distance that he needs to walk from where he parked his car to his home. Therefore, this is encouraging, but he certainly needs more rehabilitation prior to being safe at home. Additionally, he does continue to require oxygen, and he is not on oxygen at baseline. Otherwise, the remainder of his review of systems is negative. Objective: General: Awake, alert, oriented 3. Not in any acute distress. HEENT: Head normocephalic, atraumatic, sclera are nonicteric. Hearing is grossly intact to conversation. Respiratory: Still diminished throughout, however I cannot appreciate any whe ezes, rales, or rhonchi. Cardiovascular: Regular rate and rhythm, with no rubs, gallops, or murmur. Abdomen: Soft, nontender, nondistended, no hepatosplenomegaly appreciated. Bowel sounds present. Extremities: 2+ pulses in the radial and dorsalis pedis bilaterally. No evidence of clubbing or cyanosis. Assessment/Plan: Legionella pneumonia COPD exacerbation Acute hypoxic respiratory failure -Continue levofloxacin -Continue attempting to wean oxygen as tolerated Microcytic anemia -He is still requiring oxygen, not on oxygen at home. Physical deconditioning -Continue working with physical therapy and Occupational Therapy -He does have a long walk, and quite a few stairs between where he [place] his car and his home Hypertension -Blood pressures are starting to run a little bit high, therefore will reinitiate his home dose of lisinopril -Continue to hold hydrochlorothiazide at this time. Sepsis, resolved Lactic acidosis, resolved Fever, resolved Acute kidney injury, resolved DVT prophylaxis, heparin VS,Fishbone, I+O VS, Fishbone, I+O Laboratory Tests 07/01/21 04:57 Vital Signs Date Time Temp Pulse Resp B/P (MAP) Pulse Ox O2 Delivery O2 Flow Rate FiO2 07/01/21 14:00 97.5 95 22 149/81 (103) 90 07/01/21 09:15 3.0 07/01/21 04:33 Nasal Cannula 06/28/21 04:00 50 I&O- Last 24 Hours up to 6 AM 07/01/21 06:00 Intake Total 2140 ml Output Total 1550 ml Balance 590 ml JANNIE LEE DO Jul 01, 2021 19:07
[2021-07-01] MEDS: LEVEMIR (INSULIN DETEMIR) 1 UNITS/0.01ML SC SCH (21:43)
[2021-07-01] MEDS: ROSUVASTATIN 10 MG TAB (CRESTOR) PO SCH (21:43)
[2021-07-01] MEDS: ACETAMINOPHEN TAB 650MG DOSE (2X325MG) PO PRN (21:44)
[2021-07-01 21:58] VITALS: BP 169/81
[2021-07-02] MEDS: methylPREDNISolone 40MG 1ML VIAL IV SCH (00:15)
[2021-07-02] MEDS: IPRATROPIUM 0.5MG/ALBUTEROL 2.5MG INH SOL UD 3ML (DUONEB) NEB SCH ×6 (01:09→19:57)
[2021-07-02] MEDS: HEPARIN SOD (PORCINE) 5000UNITS/ML 1ML VIAL/SYRINGE SQ SCH ×3 (05:11→21:39)
[2021-07-02] MEDS: LevoFLOXacin 750 MG TABLET PO SCH (05:11)
[2021-07-02 06:00] VITALS: BP 153/82
[2021-07-02 06:55] LABS: HEMATOCRIT 29.7 % (42.0-52.0); HEMOGLOBIN 9.1 g/dl (13.5-17.5); MEAN CORPUSCULAR HEMOGLOBIN 24.3 pg (27.0-33.0); MEAN CORPUSCULAR HGB CONC 30.6 g/dl (32.0-36.5); MEAN CORPUSCULAR VOLUME 79.4 fl (80.0-96.0); PLATELET COUNT, AUTOMATED 270 10^3/uL (150-450); RED BLOOD COUNT 3.74 10^6/uL (4.30-6.10); WHITE BLOOD COUNT 11.1 10^3/uL (4.0-10.0)
[2021-07-02 07:22] LABS: BLOOD UREA NITROGEN 29 MG/DL (7-18); CALCIUM LEVEL 8.8 MG/DL (8.8-10.2); CARBON DIOXIDE LEVEL 26 MEQ/L (21-32); CHLORIDE LEVEL 97 MEQ/L (98-107); CREATININE FOR GFR 0.94 MG/DL (0.70-1.30); GLOMERULAR FILTRATION RATE > 60.0 (>49); GLUCOSE, FASTING 341 MG/DL (70-100); POTASSIUM SERUM 4.9 MEQ/L (3.5-5.1); SODIUM LEVEL 133 MEQ/L (136-145)
[2021-07-02] MEDS: HumaLOG INSULIN (NovoLOG) PER UNIT SC SCH ×4 (08:32→21:39)
[2021-07-02] MEDS: FOLIC ACID 1 MG TAB PO SCH (08:33)
[2021-07-02] MEDS: OMEPRAZOLE 20 MG CAP PO SCH ×2 (08:33→21:37)
[2021-07-02] MEDS: DIVALPROEX 500 MG TAB PO SCH ×2 (08:33→21:37)
[2021-07-02] MEDS: THIAMINE 100 MG TAB PO SCH (08:33)
[2021-07-02] MEDS: FERROUS SULFATE 325MG TAB PO SCH (08:33)
[2021-07-02] MEDS ORDERED: predniSONE 20 MG TAB PO SCH (09:00)
--- NOTE | 2021-07-02 11:26 | IPNPDOC ---
Text Note Date of Service The patient was seen on 07/02/21. NOTE Hospitalist Progress Note Subjective: Patient reports that he is feeling well this morning. He is eating breakfast when I entered the room. He has not gotten him worked with physical therapy yet today. He does have a considerable walk from his car to his home with a significant amount of stairs in between, therefore he would need to be able to accomplish an equivalent task before being safe for discharge to home. Additionally, he is not on home oxygen, therefore we will continue to try weaning him down with a target oxygen saturation of greater than 90%. He does not have any complaints today, the remainder of his review of systems is negative. Objective: General: Awake, alert, oriented 3. Not in any acute distress. HEENT: Head normocephalic, atraumatic, sclera are nonicteric. Hearing is grossly intact to conversation. Respiratory: Somewhat diminished, however lungs appear clear to auscultation bilaterally. Cardiovascular: Regular rate and rhythm, with no rubs, gallops, or murmur. Abdomen: Soft, nontender, nondistended, no hepatosplenomegaly appreciated. Bowel sounds present. Extremities: 2+ pulses in the radial and dorsalis pedis bilaterally. No evidence of clubbing or cyanosis. Assessment/Plan: Legionella pneumonia COPD exacerbation Acute hypoxic respiratory failure -Continue levofloxacin -Continue attempting to wean oxygen as tolerated -Continue weaning steroids Microcytic anemia -Iron supplementation has been started -He also was found to have a low folic acid, therefore folic acid supplementation has also been started. -He is still requiring oxygen, not on oxygen at home. Physical deconditioning -Continue working with physical therapy and Occupational Therapy -He does have a long walk, and quite a few stairs between where he rosario his car and his home Hypertension Prerenal azotemia -His first home dose of lisinopril was given this morning, we will continue to monitor his blood pressures throughout the day. -Continue to hold hydrochlorothiazide at this time, since his BUN is still elevated and is perhaps mildly dehydrated. Hyponatremia -Patient came into the hospital with mild hyponatremia, and he is once again having recurrence. He was normal for a few days. No diagnostics will be ordered at this time, we will continue to monitor on a daily basis. Sepsis, resolved Lactic acidosis, resolved Fever, resolved Acute kidney injury, resolved DVT prophylaxis, heparin VS,Fishbone, I+O VS, Fishbone, I+O Laboratory Tests 07/02/21 06:28 Vital Signs Date Time Temp Pulse Resp B/P (MAP) Pulse Ox O2 Delivery O2 Flow Rate FiO2 07/02/21 09:00 3.0 07/02/21 08:33 153/83 07/02/21 06:00 96.8 92 22 91 Nasal Cannula 06/28/21 04:00 50 I&O- Last 24 Hours up to 6 AM 07/02/21 06:00 Intake Total 1940 ml Output Total 2200 ml Balance -260 ml JANNIE LEE DO Jul 02, 2021 11:26
[2021-07-02 14:00] VITALS: BP 150/84
[2021-07-02] MEDS ORDERED: predniSONE 20 MG TAB PO ONE (21:00)
[2021-07-02] MEDS: ROSUVASTATIN 10 MG TAB (CRESTOR) PO SCH (21:37)
[2021-07-02] MEDS: ACETAMINOPHEN TAB 650MG DOSE (2X325MG) PO PRN (21:38)
[2021-07-02] MEDS: LEVEMIR (INSULIN DETEMIR) 1 UNITS/0.01ML SC SCH (21:38)
[2021-07-02 22:54] VITALS: BP 115/61
[2021-07-03] MEDS: IPRATROPIUM 0.5MG/ALBUTEROL 2.5MG INH SOL UD 3ML (DUONEB) NEB SCH ×6 (04:00→20:56)
[2021-07-03] MEDS: LevoFLOXacin 750 MG TABLET PO SCH (05:01)
[2021-07-03] MEDS: HEPARIN SOD (PORCINE) 5000UNITS/ML 1ML VIAL/SYRINGE SQ SCH ×3 (05:02→21:28)
[2021-07-03 05:45] LABS: HEMATOCRIT 31.3 % (42.0-52.0); HEMOGLOBIN 9.6 g/dl (13.5-17.5); MEAN CORPUSCULAR HEMOGLOBIN 24.7 pg (27.0-33.0); MEAN CORPUSCULAR HGB CONC 30.7 g/dl (32.0-36.5); MEAN CORPUSCULAR VOLUME 80.7 fl (80.0-96.0); PLATELET COUNT, AUTOMATED 329 10^3/uL (150-450); RED BLOOD COUNT 3.88 10^6/uL (4.30-6.10); WHITE BLOOD COUNT 10.3 10^3/uL (4.0-10.0)
[2021-07-03 06:00] VITALS: BP 169/78
[2021-07-03 06:22] LABS: BLOOD UREA NITROGEN 29 MG/DL (7-18); CALCIUM LEVEL 8.6 MG/DL (8.8-10.2); CARBON DIOXIDE LEVEL 25 MEQ/L (21-32); CHLORIDE LEVEL 98 MEQ/L (98-107); CREATININE FOR GFR 1.04 MG/DL (0.70-1.30); GLOMERULAR FILTRATION RATE > 60.0 (>49); GLUCOSE, FASTING 402 MG/DL (70-100); POTASSIUM SERUM 4.9 MEQ/L (3.5-5.1); SODIUM LEVEL 135 MEQ/L (136-145)
[2021-07-03] MEDS: HumaLOG INSULIN (NovoLOG) PER UNIT SC SCH ×4 (06:48→21:27)
[2021-07-03 08:36] VITALS: BP 168/77
[2021-07-03] MEDS: THIAMINE 100 MG TAB PO SCH (08:36)
[2021-07-03] MEDS: FERROUS SULFATE 325MG TAB PO SCH (08:36)
[2021-07-03] MEDS: FOLIC ACID 1 MG TAB PO SCH (08:36)
[2021-07-03] MEDS: OMEPRAZOLE 20 MG CAP PO SCH ×2 (08:36→21:26)
[2021-07-03] MEDS: DIVALPROEX 500 MG TAB PO SCH ×2 (08:36→21:26)
[2021-07-03] MEDS ORDERED: predniSONE 20 MG TAB PO SCH (09:00)
[2021-07-03] MEDS: LEVEMIR (INSULIN DETEMIR) 1 UNITS/0.01ML SC SCH ×2 (09:19→21:28)
--- NOTE | 2021-07-03 12:26 | IPNPDOC ---
Text Note Date of Service The patient was seen on 07/03/21. NOTE Hospitalist Progress Note Subjective: Patient is once again in good spirits this morning. He reports that he was able to work with physical therapy yesterday, apparently they walked the enriquez quite a bit, and also did 2 flights of stairs, which is good report. He does continue to be on oxygen, if it appears that he may require this on discharge I will reach out to [facility] on Sunday to see if we can have this arranged for him. Otherwise, he is still motivated to continue working with physical therapy to get back to his baseline status. Objective: General: Awake, alert, oriented 3. Not in any acute distress. HEENT: Head normocephalic, atraumatic, sclera are nonicteric. Hearing is grossly intact to conversation. Respiratory: Somewhat diminished, however lungs appear clear to auscultation bilaterally. Cardiovascular: Regular rate and rhythm, with no rubs, gallops, or murmur. Abdomen: Soft, nontender, nondistended, no hepatosplenomegaly appreciated. Bowel sounds present. Extremities: 2+ pulses in the radial and dorsalis pedis bilaterally. No evidence of clubbing or cyanosis. Assessment/Plan: Legionella pneumonia COPD exacerbation Acute hypoxic respiratory failure -Continue levofloxacin for total of 7 days (last dose 07/07/2021) -Continue attempting to wean oxygen as tolerated -Continue weaning steroids, last dose of steroid will be today, and then will discontinue. Elevated glucose without the diagnosis of diabetes mellitus -Will order hemoglobin A1c today -Increase dose of Levemir to 20 mg twice daily -Continue sliding scale before meals and at bedtime -Likely worsened by the administration of steroids, will discontinue steroids as noted above. Microcytic anemia -Iron supplementation has been started -He also was found to have a low folic acid, therefore folic acid supplementation has also been started. -He is still requiring oxygen, not on oxygen at home. Physical deconditioning -Continue working with physical therapy and Occupational Therapy -He does have a long walk, and quite a few stairs between where he rosario his car and his home Hypertension -Patient reports that his usual home dose of lisinopril is 40 mg daily, therefore an additional 20 mg will be given this morning for a total of 40, and I will change his daily dosing to match his home dosing. Prerenal azotemia -Continue to hold hydrochlorothiazide at this time, since his BUN is still elevated Hyponatremia -Slightly improved from yesterday with no intervention Sepsis, resolved Lactic acidosis, resolved Fever, resolved Acute kidney injury, resolved DVT prophylaxis, heparin VS,Fishbone, I+O VS, Fishbone, I+O Laboratory Tests 07/03/21 05:16 Vital Signs Date Time Temp Pulse Resp B/P (MAP) Pulse Ox O2 Delivery O2 Flow Rate FiO2 07/03/21 11:52 90 Nasal Cannula 1.5 07/03/21 08:36 168/77 07/03/21 06:00 96.1 18 07/02/21 22:54 93 06/28/21 04:00 50 I&O- Last 24 Hours up to 6 AM 07/03/21 06:00 Intake Total 2260 ml Output Total 2650 ml Balance -390 ml JANNIE LEE DO Jul 03, 2021 12:22
[2021-07-03 14:00] VITALS: BP 144/80
[2021-07-03 14:14] LABS: HEMOGLOBIN A1c 8.3 %
[2021-07-03] MEDS: ROSUVASTATIN 10 MG TAB (CRESTOR) PO SCH (21:27)
[2021-07-03] MEDS: ACETAMINOPHEN TAB 650MG DOSE (2X325MG) PO PRN (21:27)
[2021-07-03 22:00] VITALS: BP 150/71
[2021-07-04] MEDS: IPRATROPIUM 0.5MG/ALBUTEROL 2.5MG INH SOL UD 3ML (DUONEB) NEB SCH ×6 (03:14→20:36)
[2021-07-04] MEDS: LevoFLOXacin 750 MG TABLET PO SCH (05:43)
[2021-07-04] MEDS: HEPARIN SOD (PORCINE) 5000UNITS/ML 1ML VIAL/SYRINGE SQ SCH ×3 (05:43→22:02)
[2021-07-04] MEDS: ACETAMINOPHEN TAB 650MG DOSE (2X325MG) PO PRN (05:48)
[2021-07-04 06:00] VITALS: BP 145/70
[2021-07-04 08:08] LABS: HEMATOCRIT 31.3 % (42.0-52.0); HEMOGLOBIN 9.5 g/dl (13.5-17.5); MEAN CORPUSCULAR HEMOGLOBIN 24.5 pg (27.0-33.0); MEAN CORPUSCULAR HGB CONC 30.4 g/dl (32.0-36.5); MEAN CORPUSCULAR VOLUME 80.9 fl (80.0-96.0); PLATELET COUNT, AUTOMATED 313 10^3/uL (150-450); RED BLOOD COUNT 3.87 10^6/uL (4.30-6.10); WHITE BLOOD COUNT 10.9 10^3/uL (4.0-10.0)
[2021-07-04] MEDS: HumaLOG INSULIN (NovoLOG) PER UNIT SC SCH ×4 (08:36→22:05)
[2021-07-04] MEDS: LEVEMIR (INSULIN DETEMIR) 1 UNITS/0.01ML SC SCH ×2 (08:37→22:04)
[2021-07-04] MEDS: lisinopriL 40 MG TAB PO SCH (08:37)
[2021-07-04] MEDS: FOLIC ACID 1 MG TAB PO SCH (08:37)
[2021-07-04] MEDS: OMEPRAZOLE 20 MG CAP PO SCH ×2 (08:37→22:03)
[2021-07-04] MEDS: DIVALPROEX 500 MG TAB PO SCH ×2 (08:37→22:04)
[2021-07-04] MEDS: FERROUS SULFATE 325MG TAB PO SCH (08:37)
[2021-07-04] MEDS: THIAMINE 100 MG TAB PO SCH (08:37)
[2021-07-04 08:40] LABS: BLOOD UREA NITROGEN 27 MG/DL (7-18); CALCIUM LEVEL 8.9 MG/DL (8.8-10.2); CARBON DIOXIDE LEVEL 28 MEQ/L (21-32); CHLORIDE LEVEL 98 MEQ/L (98-107); GLOMERULAR FILTRATION RATE > 60.0 (>49); GLUCOSE, FASTING 207 MG/DL (70-100); POTASSIUM SERUM 4.8 MEQ/L (3.5-5.1); SODIUM LEVEL 135 MEQ/L (136-145)
[2021-07-04 14:07] VITALS: BP 127/62
--- NOTE | 2021-07-04 19:31 | IPNPDOC ---
Text Note Date of Service The patient was seen on 07/04/21. NOTE Hospitalist Progress Note Subjective: Patient is once again in good spirits this morning. He reports that he was able to work with physical therapy yesterday, apparently they walked the enriquez quite a bit, and also did 2 flights of stairs, which is good report. He does continue to be on oxygen, if it appears that he may require this on discharge I will reach out to [facility] on Sunday to see if we can have this arranged for him. Otherwise, he is still motivated to continue working with physical therapy to get back to his baseline status. Objective: General: Awake, alert, oriented 3. Not in any acute distress. HEENT: Head normocephalic, atraumatic, sclera are nonicteric. Hearing is grossly intact to conversation. Respiratory: Somewhat diminished, however lungs appear clear to auscultation bilaterally. Cardiovascular: Regular rate and rhythm, with no rubs, gallops, or murmur. Abdomen: Soft, nontender, nondistended, no hepatosplenomegaly appreciated. Bowel sounds present. Extremities: 2+ pulses in the radial and dorsalis pedis bilaterally. No evidence of clubbing or cyanosis. Assessment/Plan: Legionella pneumonia COPD exacerbation Acute hypoxic respiratory failure -In my last note I indicated continue levofloxacin for total 7 days, but after reviewing the fact that the patient had been on Zosyn, azithromycin, Rocephin since 06/25/2021, and his regimen was simply deescalated to levofloxacin, he has now completed a full course of antibiotics. His last day of levofloxacin will be today. -Continue attempting to wean oxygen as tolerated -Patient is already finished weaning steroids. Sugars have been significantly elevated. No additional steroids indicated at this time. Elevated glucose Diabetes mellitus type 2 -Patient does have a hemoglobin A1c greater than 6.5, therefore he does qualify for the diagnosis of diabetes mellitus type 2. This is a new diagnosis for him, therefore he will need to follow-up with his outpatient provider at the [facility] for close follow-up and treatment. -Significant improvement in sugars with Levemir 20 mg twice daily -Continue sliding scale before meals and at bedtime -Likely worsened by the administration of steroids, these have now been discontinued. Microcytic anemia -Iron supplementation has been started -He also was found to have a low folic acid, therefore folic acid supplementation has also been started. -He is still requiring oxygen, not on oxygen at home. Physical deconditioning -Continue working with physical therapy and Occupational Therapy -He does have a long walk, and quite a few stairs between where he rosario his car and his home Hypertension -Continue home dose of lisinopril 40 mg daily Prerenal azotemia -Continue to hold hydrochlorothiazide at this time, since his BUN is still elevated -Patient appears euvolemic at this time Hyponatremia -Slightly improved from yesterday with no intervention Sepsis, resolved Lactic acidosis, resolved Fever, resolved Acute kidney injury, resolved DVT prophylaxis, heparin Disposition Patient likely will need to go home on oxygen, which is new for him. He will be ready and safe for discharge when she is able to walk a sufficient distance and a send/descend a sufficient amount of stairs equivalent to what he has at home. VS,Fishbone, I+O VS, Fishbone, I+O Laboratory Tests 07/04/21 07:25 07/04/21 07:26 Vital Signs Date Time Temp Pulse Resp B/P (MAP) Pulse Ox O2 Delivery O2 Flow Rate FiO2 07/04/21 14:07 94 20 127/62 (83) 90 Nasal Cannula 1.0 07/04/21 06:00 99.3 06/28/21 04:00 50 I&O- Last 24 Hours up to 6 AM 07/04/21 06:00 Intake Total 2160 ml Output Total 2250 ml Balance -90 ml JANNIE LEE DO Jul 04, 2021 19:31
[2021-07-04 19:45] VITALS: BP 127/65
[2021-07-04] MEDS: ROSUVASTATIN 10 MG TAB (CRESTOR) PO SCH (22:02)
[2021-07-05] MEDS: IPRATROPIUM 0.5MG/ALBUTEROL 2.5MG INH SOL UD 3ML (DUONEB) NEB SCH ×6 (00:27→20:00)
[2021-07-05] MEDS: HEPARIN SOD (PORCINE) 5000UNITS/ML 1ML VIAL/SYRINGE SQ SCH ×3 (05:00→21:24)
[2021-07-05] MEDS: ACETAMINOPHEN TAB 650MG DOSE (2X325MG) PO PRN ×2 (05:06→21:23)
[2021-07-05] MEDS: IBUPROFEN 600MG TAB PO PRN (06:06)
[2021-07-05 06:11] LABS: HEMATOCRIT 36.1 % (42.0-52.0); HEMOGLOBIN 11.1 g/dl (13.5-17.5); MEAN CORPUSCULAR HEMOGLOBIN 24.6 pg (27.0-33.0); MEAN CORPUSCULAR HGB CONC 30.7 g/dl (32.0-36.5); MEAN CORPUSCULAR VOLUME 79.9 fl (80.0-96.0); PLATELET COUNT, AUTOMATED 326 10^3/uL (150-450); RED BLOOD COUNT 4.52 10^6/uL (4.30-6.10); WHITE BLOOD COUNT 12.1 10^3/uL (4.0-10.0)
[2021-07-05 06:24] VITALS: BP 112/67
[2021-07-05 06:34] LABS: BLOOD UREA NITROGEN 22 MG/DL (7-18); CALCIUM LEVEL 8.6 MG/DL (8.8-10.2); CARBON DIOXIDE LEVEL 28 MEQ/L (21-32); CHLORIDE LEVEL 99 MEQ/L (98-107); CREATININE FOR GFR 0.84 MG/DL (0.70-1.30); GLOMERULAR FILTRATION RATE > 60.0 (>49); GLUCOSE, FASTING 182 MG/DL (70-100); SODIUM LEVEL 134 MEQ/L (136-145)
[2021-07-05] MEDS: HumaLOG INSULIN (NovoLOG) PER UNIT SC SCH ×4 (08:21→21:00)
[2021-07-05] MEDS: DIVALPROEX 500 MG TAB PO SCH ×2 (08:22→21:23)
[2021-07-05] MEDS: OMEPRAZOLE 20 MG CAP PO SCH ×2 (08:22→21:23)
[2021-07-05] MEDS: lisinopriL 40 MG TAB PO SCH (08:22)
[2021-07-05] MEDS: LEVEMIR (INSULIN DETEMIR) 1 UNITS/0.01ML SC SCH ×2 (08:22→21:22)
[2021-07-05] MEDS: FERROUS SULFATE 325MG TAB PO SCH (08:22)
[2021-07-05] MEDS: THIAMINE 100 MG TAB PO SCH (08:22)
[2021-07-05] MEDS: FOLIC ACID 1 MG TAB PO SCH (08:22)
[2021-07-05 14:00] VITALS: BP 114/66
--- NOTE | 2021-07-05 14:26 | IPNPDOC ---
Subjective Date Seen The patient was seen on 07/05/21. Subjective Chief Complaint/HPI Patient was seen and examined at bedside this morning. He has significant improvement in his breathing since the time of admission. He denied feeling short of breath while on oxygen supplementation or having any acute events overnight. However, as per nursing staff during the night he desaturates and his oxygen requirements have needed to be increased. There has been no documentation of increasing O2 requirements overnight for the last 24 hours unfortunately in the EMR. Objective Physical Examination Other physical findings General: Lying in bed, no acute distress Head/Neck/Throat: Trachea midline, mucous membranes moist Eyes: Sclera anicteric, no erythema or discharge appreciated b/l Thorax: On 3L nc, clear to auscultation, no wheezes appreciated Cardiovascular: Normal rate, regular rhythm, normal S1, S2; no S3, S4, rubs/gallops/murmurs Abdomen: Bowel sounds present, soft/nontender/nondistended Genitourinary: No CVA tenderness, no Snow in place Musculoskeletal: Moving all extremities, no edema Skin: Poor hygiene of feet Neurologic: AAOx3, speech fluent and goal-directed, no focal deficits, grossly intact Assessment /Plan Assessment #Physical deconditioning -Continue with physical therapy. He reports having a long walk from his car to his house as well as stairs. #Legionella pneumonia -Completed antibiotics. #Sepsis -Resolved; was secondary to Legionella pneumonia. #COPD -No signs of acute exacerbation; he has been tapered off steroids. Continue with scheduled duo nebs, albuterol as needed. #Hypoxia -Will likely require oxygen therapy at home. Concerns pt desat. during sleep, will do nocturnal pulse ox. #Diabetes -This is a new diagnosis. Continue with Levemir, insulin sliding scale, hypoglycemic protocol, and Accu-Cheks. #Microcytic anemia -H&H remains stable. He was started on iron and folic acid supplementation. He will need to undergo age-appropriate screening including colonoscopy, which can be done as an outpatient. #LUCILLE -Resolved. This was likely prerenal azotemia in setting of sepsis. #Hypertension -Continue with lisinopril 40 mg daily #DVT prophylaxis -Heparin subcu Plan/VTE VTE Prophylaxis Ordered?: Yes VS, I&O, 24H, Fishbone Vital Signs/I&O Vital Signs Date Time Temp Pulse Resp B/P (MAP) Pulse Ox O2 Delivery O2 Flow Rate FiO2 07/05/21 07:40 1.0 07/05/21 06:24 97.9 101 18 112/67 (82) 91 Nasal Cannula I&O- Last 24 Hours up to 6 AM 07/05/21 06:00 Intake Total 1140 ml Output Total 1000 ml Balance 140 ml Laboratory Data 24H LABS Laboratory Tests 2 07/04/21 16:53: Bedside Glucose (Misc Panel) 244H 07/04/21 20:02: Bedside Glucose (Misc Panel) 306H 07/05/21 05:49: Nucleated Red Blood Cells % (auto) 0.3H, Anion Gap 7L, Glomerular Filtration Rate > 60.0, Calcium Level 8.6L 07/05/21 11:33: Bedside Glucose (Misc Panel) 175H CBC/BMP Laboratory Tests 07/05/21 05:49 Microbiology Microbiology 06/27/21 Blood Culture - Final, Complete NO GROWTH AFTER 5 DAYS 06/27/21 Blood Culture - Final, Complete NO GROWTH AFTER 5 DAYS 06/25/21 Blood Culture - Final, Complete NO GROWTH AFTER 5 DAYS 06/25/21 Blood Culture - Final, Complete NO GROWTH AFTER 5 DAYS LAURA WOODSON M.D. Jul 05, 2021 14:18
[2021-07-05 15:10] LABS: FREE T4 1.02 NG/DL (0.76-1.46)
[2021-07-05] MEDS: ROSUVASTATIN 10 MG TAB (CRESTOR) PO SCH (21:23)
[2021-07-06] MEDS: IPRATROPIUM 0.5MG/ALBUTEROL 2.5MG INH SOL UD 3ML (DUONEB) NEB SCH ×6 (03:51→20:00)
[2021-07-06] MEDS: HEPARIN SOD (PORCINE) 5000UNITS/ML 1ML VIAL/SYRINGE SQ SCH ×3 (05:24→22:03)
[2021-07-06 06:00] VITALS: BP 96/60
[2021-07-06 07:42] LABS: HEMATOCRIT 34.9 % (42.0-52.0); HEMOGLOBIN 10.6 g/dl (13.5-17.5); MEAN CORPUSCULAR HEMOGLOBIN 24.8 pg (27.0-33.0); MEAN CORPUSCULAR HGB CONC 30.4 g/dl (32.0-36.5); MEAN CORPUSCULAR VOLUME 81.7 fl (80.0-96.0); PLATELET COUNT, AUTOMATED 313 10^3/uL (150-450); RED BLOOD COUNT 4.27 10^6/uL (4.30-6.10); WHITE BLOOD COUNT 13.5 10^3/uL (4.0-10.0)
[2021-07-06] MEDS: HumaLOG INSULIN (NovoLOG) PER UNIT SC SCH ×4 (08:16→21:00)
[2021-07-06] MEDS: LEVEMIR (INSULIN DETEMIR) 1 UNITS/0.01ML SC SCH ×2 (08:16→21:00)
[2021-07-06] MEDS: DIVALPROEX 500 MG TAB PO SCH ×2 (08:17→22:05)
[2021-07-06] MEDS: lisinopriL 40 MG TAB PO SCH (08:17)
[2021-07-06] MEDS: FOLIC ACID 1 MG TAB PO SCH (08:17)
[2021-07-06] MEDS: THIAMINE 100 MG TAB PO SCH (08:17)
[2021-07-06] MEDS: OMEPRAZOLE 20 MG CAP PO SCH ×2 (08:17→22:04)
[2021-07-06] MEDS: FERROUS SULFATE 325MG TAB PO SCH (08:17)
[2021-07-06 08:18] LABS: BLOOD UREA NITROGEN 36 MG/DL (7-18); CALCIUM LEVEL 8.8 MG/DL (8.8-10.2); CARBON DIOXIDE LEVEL 25 MEQ/L (21-32); CHLORIDE LEVEL 104 MEQ/L (98-107); CREATININE FOR GFR 1.14 MG/DL (0.70-1.30); GLOMERULAR FILTRATION RATE > 60.0 (>49); GLUCOSE, FASTING 199 MG/DL (70-100); MAGNESIUM LEVEL 2.4 MG/DL (1.8-2.4); PHOSPHORUS LEVEL 4.2 MG/DL (2.5-4.9); POTASSIUM SERUM 5.3 MEQ/L (3.5-5.1); SODIUM LEVEL 139 MEQ/L (136-145)
[2021-07-06] MEDS: ACETAMINOPHEN TAB 650MG DOSE (2X325MG) PO PRN (12:14)
--- NOTE | 2021-07-06 13:03 | IPNPDOC ---
Subjective Date Seen The patient was seen on 07/06/21. Subjective Chief Complaint/HPI Patient was seen and examined at bedside this morning. He had no new complaints. Unfortunately, overnight pulse ox was not monitored and it was previously reported patient required higher oxygen supplementation during the night. Therefore, he was explained he would not be able to be discharged until we knew appropriate oxygen requirements. Objective Physical Examination Other physical findings General: Lying in bed, no acute distress Head/Neck/Throat: Trachea midline, mucous membranes moist Eyes: Sclera anicteric, no erythema or discharge appreciated b/l Thorax: On 3L nc, clear to auscultation, no wheezes appreciated Cardiovascular: Normal rate, regular rhythm, normal S1, S2; no S3, S4, rubs/gallops/murmurs Abdomen: Bowel sounds present, soft/nontender/nondistended Genitourinary: No CVA tenderness, no Snow in place Musculoskeletal: Moving all extremities, no edema Skin: Poor hygiene of feet Neurologic: AAOx3, speech fluent and goal-directed, no focal deficits, grossly intact Assessment /Plan Assessment #Hypoxia -Will likely require oxygen therapy at home. Concerns pt desat. during sleep. Unfortunately nocturnal pulse ox was not done therefore patient could not be discharged. Nursing staff made aware #Physical deconditioning -Pt recommended home with services. #Legionella pneumonia -Completed antibiotics. #Sepsis -Resolved; was secondary to Legionella pneumonia. #COPD -No signs of acute exacerbation; he has been tapered off steroids. Continue with scheduled duo nebs, albuterol as needed. #Diabetes -This is a new diagnosis. Continue with Levemir, insulin sliding scale, hypoglycemic protocol, and Accu-Cheks. #Microcytic anemia -H&H remains stable. He was started on iron and folic acid supplementation. He will need to undergo age-appropriate screening including colonoscopy, which can be done as an outpatient. #LUCILLE -Resolved. This was likely prerenal azotemia in setting of sepsis. #Hypertension -Continue with lisinopril 40 mg daily #DVT prophylaxis -Heparin subcu Plan/VTE VTE Prophylaxis Ordered?: Yes VS, I&O, 24H, Fishbone Vital Signs/I&O Vital Signs Date Time Temp Pulse Resp B/P (MAP) Pulse Ox O2 Delivery O2 Flow Rate FiO2 07/06/21 07:45 1.0 07/06/21 06:00 98.6 101 20 96/60 (72) 92 Nasal Cannula I&O- Last 24 Hours up to 6 AM 07/06/21 05:59 Intake Total 540 ml Output Total 1200 ml Balance -660 ml Laboratory Data 24H LABS Laboratory Tests 2 07/05/21 16:56: Bedside Glucose (Misc Panel) 178H 07/05/21 20:48: Bedside Glucose (Misc Panel) 168H 07/06/21 05:45: Bedside Glucose (Misc Panel) 208H 07/06/21 07:24: Nucleated Red Blood Cells % (auto) 0.0, Anion Gap 10, Glomerular Filtration Rate > 60.0, Calcium Level 8.8, Phosphorus Level 4.2, Magnesium Level 2.4 07/06/21 11:12: Bedside Glucose (Misc Panel) 153H CBC/BMP Laboratory Tests 07/06/21 07:24 Microbiology Microbiology 06/27/21 Blood Culture - Final, Complete NO GROWTH AFTER 5 DAYS 06/27/21 Blood Culture - Final, Complete NO GROWTH AFTER 5 DAYS LAURA WOODSON M.D. Jul 06, 2021 12:52
[2021-07-06 14:00] VITALS: BP 94/60
[2021-07-06 22:00] VITALS: BP 134/74
[2021-07-06] MEDS: ROSUVASTATIN 10 MG TAB (CRESTOR) PO SCH (22:04)
[2021-07-07] MEDS: IPRATROPIUM 0.5MG/ALBUTEROL 2.5MG INH SOL UD 3ML (DUONEB) NEB SCH ×6 (04:00→19:21)
[2021-07-07] MEDS: HEPARIN SOD (PORCINE) 5000UNITS/ML 1ML VIAL/SYRINGE SQ SCH ×3 (05:54→21:20)
[2021-07-07] MEDS: ACETAMINOPHEN TAB 650MG DOSE (2X325MG) PO PRN (05:55)
[2021-07-07 06:00] VITALS: BP 112/55
[2021-07-07 06:33] LABS: HEMATOCRIT 32.3 % (42.0-52.0); HEMOGLOBIN 9.5 g/dl (13.5-17.5); MEAN CORPUSCULAR HEMOGLOBIN 24.5 pg (27.0-33.0); MEAN CORPUSCULAR HGB CONC 29.4 g/dl (32.0-36.5); MEAN CORPUSCULAR VOLUME 83.2 fl (80.0-96.0); PLATELET COUNT, AUTOMATED 255 10^3/uL (150-450); RED BLOOD COUNT 3.88 10^6/uL (4.30-6.10); WHITE BLOOD COUNT 12.8 10^3/uL (4.0-10.0)
[2021-07-07 06:44] LABS: BLOOD UREA NITROGEN 34 MG/DL (7-18); CALCIUM LEVEL 8.2 MG/DL (8.8-10.2); CARBON DIOXIDE LEVEL 27 MEQ/L (21-32); CHLORIDE LEVEL 106 MEQ/L (98-107); CREATININE FOR GFR 1.25 MG/DL (0.70-1.30); GLOMERULAR FILTRATION RATE > 60.0 (>49); GLUCOSE, FASTING 80 MG/DL (70-100); MAGNESIUM LEVEL 2.8 MG/DL (1.8-2.4); PHOSPHORUS LEVEL 4.7 MG/DL (2.5-4.9); POTASSIUM SERUM 5.3 MEQ/L (3.5-5.1); SODIUM LEVEL 139 MEQ/L (136-145)
[2021-07-07] MEDS: HumaLOG INSULIN (NovoLOG) PER UNIT SC SCH ×4 (07:17→21:00)
[2021-07-07] MEDS ORDERED: PATIROMER SORBITEX CALCIUM 8.4 GM POWDER PACKET (VELTASSA) PO ONE (08:00)
[2021-07-07] MEDS: LEVEMIR (INSULIN DETEMIR) 1 UNITS/0.01ML SC SCH ×2 (08:31→21:20)
[2021-07-07] MEDS: FOLIC ACID 1 MG TAB PO SCH (08:36)
[2021-07-07] MEDS: FERROUS SULFATE 325MG TAB PO SCH (08:36)
[2021-07-07] MEDS: THIAMINE 100 MG TAB PO SCH (08:36)
[2021-07-07] MEDS: OMEPRAZOLE 20 MG CAP PO SCH ×2 (08:36→21:20)
[2021-07-07] MEDS: DIVALPROEX 500 MG TAB PO SCH ×2 (08:36→21:21)
[2021-07-07 13:10] LABS: CALCIUM LEVEL 8.5 MG/DL (8.8-10.2); CREATININE FOR GFR 1.3 MG/DL (0.70-1.30); MAGNESIUM LEVEL 2.9 MG/DL (1.8-2.4); POTASSIUM SERUM 4.9 MEQ/L (3.5-5.1)
[2021-07-07 17:07] LABS: LEGIONELLA ANTIGEN URINE Positive (Negative)
--- NOTE | 2021-07-07 17:12 | IPNPDOC ---
Subjective Date Seen The patient was seen on 07/07/21. Subjective Chief Complaint/HPI Patient was seen and examined at bedside this morning. He had no new complaints. He denied chest pain, shortness of breath, abdominal pain, nausea, vomiting, problem with urination and bowel movements. Objective Physical Examination Other physical findings General: Lying in bed, no acute distress Head/Neck/Throat: Trachea midline, mucous membranes moist Eyes: Sclera anicteric, no erythema or discharge appreciated bilaterally Thorax: saturating at 92 to 94% on 3 L nasal cannula, lungs clear to auscultation bilaterally, no wheezes/rales/rhonchi Cardiovascular: Normal rate, regular rhythm, normal S1, S2; no S3, S4, rubs/gallops/murmurs Abdomen: Bowel sounds present, soft/nontender/nondistended Genitourinary: No CVA tenderness, no Snow in place Musculoskeletal: Moving all extremities, no edema Skin: Warm, dry Neurologic: AAOx3, speech fluent and goal-directed, no focal deficits, grossly intact Assessment /Plan Assessment #Electrolyte abnormality -Hyperkalemia while on lisinopril. He received patiromer x 1. Repeat chemistry later on today to ensure that his potassium within normal limits. #Physical deconditioning -Physical therapy recommends home with services. #Legionella pneumonia -Completed antibiotics. #Sepsis -Resolved; was secondary to Legionella pneumonia. #COPD -No signs of acute exacerbation; he has been tapered off steroids. Continue with scheduled duo nebs, albuterol as needed. #Hypoxia -Will likely require oxygen therapy at home. -Nocturnal pulse ox was done, he dipped down to 86% on 1l and rebounded back to acceptable oxygen levels on 2 L. Therefore he will be discharged with 2 L of home O2. #Diabetes -This is a new diagnosis. His Levemir will be decreased for tonight as his blood glucose this morning was 80. Continue with insulin sliding scale, hypoglycemic protocol, and Accu-Cheks. At the time of discharge, he can go home on Metformin and follow-up with his primary care physician for adjustments. #Microcytic anemia -H&H remains stable. He was started on iron and folic acid supplementation. He will need to undergo age-appropriate screening including colonoscopy, which can be done as an outpatient. #LUCILLE -Resolved. This was likely prerenal azotemia in setting of sepsis. #Hypertension -His lisinopril was held due to hyperkalemia and because his blood pressure was on the lower end. #DVT prophylaxis -Heparin subcu Plan/VTE VTE Prophylaxis Ordered?: Yes VS, I&O, 24H, Fishbone Vital Signs/I&O Vital Signs Date Time Temp Pulse Resp B/P (MAP) Pulse Ox O2 Delivery O2 Flow Rate FiO2 07/07/21 09:00 1.0 07/07/21 06:00 98.1 103 20 112/55 (74) 91 Nasal Cannula I&O- Last 24 Hours up to 6 AM 07/07/21 06:00 Intake Total 900 ml Output Total 625 ml Balance 275 ml Laboratory Data 24H LABS Laboratory Tests 2 07/06/21 21:42: Bedside Glucose (Misc Panel) 178H 07/07/21 05:44: Nucleated Red Blood Cells % (auto) 0.0, Anion Gap 6L, Glomerular Filtration Rate > 60.0, Calcium Level 8.2L, Phosphorus Level 4.7, Magnesium Level 2.8H 07/07/21 11:29: Bedside Glucose (Misc Panel) 136H 07/07/21 12:36: Anion Gap 5L, Glomerular Filtration Rate 59.0, Calcium Level 8.5L, Phosphorus Level 5.0H, Magnesium Level 2.9H 07/07/21 16:43: Bedside Glucose (Misc Panel) 109 CBC/BMP Laboratory Tests 07/07/21 05:44 07/07/21 12:36 Microbiology Microbiology 06/27/21 Blood Culture - Final, Complete NO GROWTH AFTER 5 DAYS 06/27/21 Blood Culture - Final, Complete NO GROWTH AFTER 5 DAYS LAURA WOODSON M.D. Jul 07, 2021 17:09
[2021-07-07] MEDS: ROSUVASTATIN 10 MG TAB (CRESTOR) PO SCH (21:21)
[2021-07-08] MEDS: HEPARIN SOD (PORCINE) 5000UNITS/ML 1ML VIAL/SYRINGE SQ SCH ×3 (05:32→21:12)
[2021-07-08 06:00] VITALS: BP 101/58
[2021-07-08 06:44] LABS: HEMATOCRIT 32.7 % (42.0-52.0); HEMOGLOBIN 9.6 g/dl (13.5-17.5); MEAN CORPUSCULAR HEMOGLOBIN 24.5 pg (27.0-33.0); MEAN CORPUSCULAR HGB CONC 29.4 g/dl (32.0-36.5); MEAN CORPUSCULAR VOLUME 83.4 fl (80.0-96.0); PLATELET COUNT, AUTOMATED 258 10^3/uL (150-450); RED BLOOD COUNT 3.92 10^6/uL (4.30-6.10); WHITE BLOOD COUNT 10.3 10^3/uL (4.0-10.0)
[2021-07-08 07:01] LABS: BLOOD UREA NITROGEN 26 MG/DL (7-18); CALCIUM LEVEL 8.8 MG/DL (8.8-10.2); CARBON DIOXIDE LEVEL 24 MEQ/L (21-32); CHLORIDE LEVEL 106 MEQ/L (98-107); CREATININE FOR GFR 1.08 MG/DL (0.70-1.30); GLOMERULAR FILTRATION RATE > 60.0 (>49); GLUCOSE, FASTING 83 MG/DL (70-100); MAGNESIUM LEVEL 2.5 MG/DL (1.8-2.4); PHOSPHORUS LEVEL 4.4 MG/DL (2.5-4.9); POTASSIUM SERUM 5.4 MEQ/L (3.5-5.1); SODIUM LEVEL 137 MEQ/L (136-145)
[2021-07-08] MEDS: HumaLOG INSULIN (NovoLOG) PER UNIT SC SCH ×4 (07:30→21:00)
[2021-07-08] MEDS: IPRATROPIUM 0.5MG/ALBUTEROL 2.5MG INH SOL UD 3ML (DUONEB) NEB SCH ×5 (07:37→23:17)
[2021-07-08] MEDS: FOLIC ACID 1 MG TAB PO SCH (08:57)
[2021-07-08] MEDS: DIVALPROEX 500 MG TAB PO SCH ×2 (08:57→21:12)
[2021-07-08] MEDS: LEVEMIR (INSULIN DETEMIR) 1 UNITS/0.01ML SC SCH (08:57)
[2021-07-08] MEDS: OMEPRAZOLE 20 MG CAP PO SCH ×2 (08:57→21:12)
[2021-07-08] MEDS: FERROUS SULFATE 325MG TAB PO SCH (08:57)
[2021-07-08] MEDS: THIAMINE 100 MG TAB PO SCH (08:57)
[2021-07-08] MEDS ORDERED: PATIROMER SORBITEX CALCIUM 8.4 GM POWDER PACKET (VELTASSA) PO ONE (09:00)
[2021-07-08 14:00] VITALS: BP 101/54
[2021-07-08 16:00] LABS: BLOOD UREA NITROGEN 24 MG/DL (7-18); CARBON DIOXIDE LEVEL 27 MEQ/L (21-32); CHLORIDE LEVEL 105 MEQ/L (98-107); CREATININE FOR GFR 1.14 MG/DL (0.70-1.30); GLOMERULAR FILTRATION RATE > 60.0 (>49); GLUCOSE, FASTING 81 MG/DL (70-100); MAGNESIUM LEVEL 2.6 MG/DL (1.8-2.4); PHOSPHORUS LEVEL 5.2 MG/DL (2.5-4.9); POTASSIUM SERUM 5.1 MEQ/L (3.5-5.1); SODIUM LEVEL 139 MEQ/L (136-145)
--- NOTE | 2021-07-08 16:47 | IPNPDOC ---
Subjective Date Seen The patient was seen on 07/08/21. Subjective Chief Complaint/HPI Patient seen and examined at bedside this morning. He had no new complaints. He was explained that we are waiting for you to fill his prescriptions. Other systems 10 point review of system was negative except for what is noted in the HPI Objective Physical Examination Other physical findings General: Lying in bed, no acute distress Head/Neck/Throat: Trachea midline, mucous membranes moist Eyes: Sclera anicteric, no erythema or discharge appreciated bilaterally Thorax: saturating at 92 to 94% on 3 L nasal cannula, lungs clear to auscultation bilaterally, no wheezes/rales/rhonchi Cardiovascular: Normal rate, regular rhythm, normal S1, S2; no S3, S4, rubs/gallops/murmurs Abdomen: Bowel sounds present, soft/nontender/nondistended Genitourinary: No CVA tenderness, no Snow in place Musculoskeletal: Moving all extremities, no edema Skin: Warm, dry Neurologic: AAOx3, speech fluent and goal-directed, no focal deficits, grossly intact Assessment /Plan Assessment #Electrolyte abnormality -Hyperkalemia while on lisinopril. He received patiromer again today. Repeat chemistry later on today to ensure that his potassium within normal limits. #Physical deconditioning -Physical therapy recommends home with services. #Legionella pneumonia -Completed antibiotics. #Sepsis -Resolved; was secondary to Legionella pneumonia. #COPD -No signs of acute exacerbation; he has been tapered off steroids. Continue with scheduled duo nebs, albuterol as needed. #Hypoxia -Will likely require oxygen therapy at home. -Nocturnal pulse ox was done, he dipped down to 86% on 1l and rebounded back to acceptable oxygen levels on 2 L. Therefore he will be discharged with 2 L of home O2. #Diabetes -This is a new diagnosis. We will switch him to Metformin to 500 mg twice daily in preparation for him going home. Continue with insulin sliding scale, hypoglycemic protocol, and Accu-Cheks. #Microcytic anemia -H&H remains stable. He was started on iron and folic acid supplementation. He will need to undergo age-appropriate screening including colonoscopy, which can be done as an outpatient. #LUCILLE -Resolved. This was likely prerenal azotemia in setting of sepsis. #Hypertension -His lisinopril was held due to hyperkalemia and because his blood pressure was on the lower end. #DVT prophylaxis -Heparin subcu Disposition patient is medically stable to go home, [facility]. Plan/VTE VTE Prophylaxis Ordered?: Yes VS, I&O, 24H, Fishbone Vital Signs/I&O Vital Signs Date Time Temp Pulse Resp B/P (MAP) Pulse Ox O2 Delivery O2 Flow Rate FiO2 07/08/21 14:00 98.2 106 18 101/54 (70) 92 07/08/21 08:50 2.0 07/08/21 08:03 Room Air I&O- Last 24 Hours up to 6 AM 07/08/21 06:00 Intake Total 840 ml Output Total 1375 ml Balance -535 ml Laboratory Data 24H LABS Laboratory Tests 2 07/07/21 20:26: Bedside Glucose (Misc Panel) 175H 07/08/21 06:02: Nucleated Red Blood Cells % (auto) 0.0, Anion Gap 7L, Glomerular Filtration Rate > 60.0, Calcium Level 8.8, Phosphorus Level 4.4, Magnesium Level 2.5H 07/08/21 11:23: Bedside Glucose (Misc Panel) 169H 07/08/21 15:10: Anion Gap 7L, Glomerular Filtration Rate > 60.0, Calcium Level 9.0, Phosphorus Level 5.2H, Magnesium Level 2.6H 07/08/21 16:23: Bedside Glucose (Misc Panel) 78L CBC/BMP Laboratory Tests 07/08/21 06:02 07/08/21 15:10 LAURA WOODSON M.D. Jul 08, 2021 16:47
[2021-07-08 20:12] VITALS: BP 109/59
[2021-07-08] MEDS: ROSUVASTATIN 10 MG TAB (CRESTOR) PO SCH (21:12)
[2021-07-09] MEDS: IPRATROPIUM 0.5MG/ALBUTEROL 2.5MG INH SOL UD 3ML (DUONEB) NEB SCH ×6 (03:24→23:16)
[2021-07-09] MEDS: HEPARIN SOD (PORCINE) 5000UNITS/ML 1ML VIAL/SYRINGE SQ SCH ×3 (05:31→21:56)
[2021-07-09 06:07] VITALS: BP 108/59
[2021-07-09 07:18] LABS: HEMATOCRIT 33.4 % (42.0-52.0); HEMOGLOBIN 9.9 g/dl (13.5-17.5); MEAN CORPUSCULAR HGB CONC 29.6 g/dl (32.0-36.5); MEAN CORPUSCULAR VOLUME 84.3 fl (80.0-96.0); PLATELET COUNT, AUTOMATED 262 10^3/uL (150-450); RED BLOOD COUNT 3.96 10^6/uL (4.30-6.10); WHITE BLOOD COUNT 8.7 10^3/uL (4.0-10.0)
[2021-07-09] MEDS: HumaLOG INSULIN (NovoLOG) PER UNIT SC SCH ×4 (07:27→21:00)
[2021-07-09 07:38] LABS: BLOOD UREA NITROGEN 24 MG/DL (7-18); CALCIUM LEVEL 8.9 MG/DL (8.8-10.2); CARBON DIOXIDE LEVEL 26 MEQ/L (21-32); CHLORIDE LEVEL 102 MEQ/L (98-107); CREATININE FOR GFR 1.15 MG/DL (0.70-1.30); GLOMERULAR FILTRATION RATE > 60.0 (>49); GLUCOSE, FASTING 88 MG/DL (70-100); MAGNESIUM LEVEL 2.6 MG/DL (1.8-2.4); PHOSPHORUS LEVEL 5.1 MG/DL (2.5-4.9); POTASSIUM SERUM 5.2 MEQ/L (3.5-5.1); SODIUM LEVEL 135 MEQ/L (136-145)
[2021-07-09] MEDS: THIAMINE 100 MG TAB PO SCH (08:38)
[2021-07-09] MEDS: ACETAMINOPHEN TAB 650MG DOSE (2X325MG) PO PRN (08:38)
[2021-07-09] MEDS: FOLIC ACID 1 MG TAB PO SCH (08:38)
[2021-07-09] MEDS: FERROUS SULFATE 325MG TAB PO SCH (08:38)
[2021-07-09] MEDS: OMEPRAZOLE 20 MG CAP PO SCH ×2 (08:39→21:56)
[2021-07-09] MEDS: DIVALPROEX 500 MG TAB PO SCH ×2 (08:39→21:56)
[2021-07-09] MEDS ORDERED: SOD POLYSTYRENE SULFONATE SUSP 15 GM/60 ML UD PO ONE (11:00)
[2021-07-09 14:00] VITALS: BP 101/61
[2021-07-09 15:20] LABS: CALCIUM LEVEL 9.1 MG/DL (8.8-10.2); CREATININE FOR GFR 1.42 MG/DL (0.70-1.30); GLOMERULAR FILTRATION RATE 53.3 (>49); MAGNESIUM LEVEL 2.4 MG/DL (1.8-2.4); PHOSPHORUS LEVEL 5.2 MG/DL (2.5-4.9); POTASSIUM SERUM 4.4 MEQ/L (3.5-5.1)
--- NOTE | 2021-07-09 15:44 | IPNPDOC ---
Subjective Date Seen The patient was seen on 07/09/21. Subjective Chief Complaint/HPI Patient seen and examined at bedside this morning. He had no new complaints. He was explained that his potassium was high and he was given medications to bring it down. He did endorsed he was having a lot of bananas for the last few days. He was explained about a low potassium diet. Other systems 10 point review of system was negative except for what is noted in the HPI Objective Physical Examination Other physical findings General: Lying in bed, no acute distress Head/Neck/Throat: Trachea midline, mucous membranes moist Eyes: Sclera anicteric, no erythema or discharge appreciated bilaterally Thorax: saturating at 92 to 94% on 3 L nasal cannula, lungs clear to au scultation bilaterally, no wheezes/rales/rhonchi Cardiovascular: Normal rate, regular rhythm, normal S1, S2; no S3, S4, rubs/gallops/murmurs Abdomen: Bowel sounds present, soft/nontender/nondistended Genitourinary: No CVA tenderness, no Snow in place Musculoskeletal: Moving all extremities, no edema Skin: Warm, dry Neurologic: AAOx3, speech fluent and goal-directed, no focal deficits, grossly intact Assessment /Plan Assessment #Electrolyte abnormality -Hyperkalemia while on lisinopril and also likely due to his diet. He received patiromer for 2 days and received Kayexalate today. On repeat labs his potassium is within normal limits. #Acute kidney injury -Suspect that he has poor p.o. intake during hospitalization. We will treat him with IV fluids tonight and repeat chemistry tomorrow. Avoid nephrotoxic medications. #Physical deconditioning -Physical therapy recommends home with services. #Legionella pneumonia -Completed antibiotics. #Sepsis -Resolved; was secondary to Legionella pneumonia. #COPD -No signs of acute exacerbation; he has been tapered off steroids. Continue with scheduled duo nebs, albuterol as needed. #Hypoxia -Will likely require oxygen therapy at home. -Nocturnal pulse ox was done, he dipped down to 86% on 1l and rebounded back to acceptable oxygen levels on 2 L. Therefore he will be discharged with 2 L of home O2. #Diabetes -This is a new diagnosis. We will switch him to Metformin to 500 mg twice daily in preparation for him going home. Continue with insulin sliding scale, hypoglycemic protocol, and Accu-Cheks. #Microcytic anemia -H&H remains stable. He was started on iron and folic acid supplementation. He will need to undergo age-appropriate screening including colonoscopy, which can be done as an outpatient. #LUCILLE -Resolved. This was likely prerenal azotemia in setting of sepsis. #Hypertension -His lisinopril was held due to hyperkalemia and because his blood pressure was on the lower end. #DVT prophylaxis -Heparin subcu Disposition developed acute kidney injury today, if renal function is stable tomorrow he can be discharged. Prescriptions are ready to be dropped off by [facility]. Plan/VTE VTE Prophylaxis Ordered?: Yes VS, I&O, 24H, Fishbone Vital Signs/I&O Vital Signs Date Time Temp Pulse Resp B/P (MAP) Pulse Ox O2 Delivery O2 Flow Rate FiO2 07/09/21 14:00 98.4 105 18 101/61 (74) 91 Nasal Cannula 2.0 I&O- Last 24 Hours up to 6 AM 07/09/21 05:59 Intake Total 1620 ml Output Total 2075 ml Balance -455 ml Laboratory Data 24H LABS Laboratory Tests 2 07/08/21 16:23: Bedside Glucose (Misc Panel) 78L 07/08/21 20:15: Bedside Glucose (Misc Panel) 163H 07/09/21 06:15: Bedside Glucose (Misc Panel) 102 07/09/21 06:42: Nucleated Red Blood Cells % (auto) 0.0, Anion Gap 7L, Glomerular Filtration Rate > 60.0, Calcium Level 8.9, Phosphorus Level 5.1H, Magnesium Level 2.6H 07/09/21 11:51: Bedside Glucose (Misc Panel) 103 07/09/21 14:40: Anion Gap 9, Glomerular Filtration Rate 53.3, Calcium Level 9.1, Phosphorus Level 5.2H, Magnesium Level 2.4 CBC/BMP Laboratory Tests 07/09/21 06:42 07/09/21 14:40 LAURA WOODSON M.D. Jul 09, 2021 15:44
[2021-07-09] MEDS: NS 0.45% 1,000 ML IV SCH (17:52)
[2021-07-09] MEDS: ROSUVASTATIN 10 MG TAB (CRESTOR) PO SCH (21:56)
[2021-07-09 22:00] VITALS: BP 135/72
[2021-07-10] MEDS: IPRATROPIUM 0.5MG/ALBUTEROL 2.5MG INH SOL UD 3ML (DUONEB) NEB SCH (03:16)
[2021-07-10] MEDS: HEPARIN SOD (PORCINE) 5000UNITS/ML 1ML VIAL/SYRINGE SQ SCH ×2 (05:13→13:16)
[2021-07-10] MEDS: NS 0.45% 1,000 ML IV SCH (05:13)
[2021-07-10 06:00] VITALS: BP 109/52
[2021-07-10 07:06] LABS: HEMOGLOBIN 9.1 g/dl (13.5-17.5); MEAN CORPUSCULAR HEMOGLOBIN 24.6 pg (27.0-33.0); MEAN CORPUSCULAR HGB CONC 29.4 g/dl (32.0-36.5); MEAN CORPUSCULAR VOLUME 83.8 fl (80.0-96.0); PLATELET COUNT, AUTOMATED 263 10^3/uL (150-450); WHITE BLOOD COUNT 5.9 10^3/uL (4.0-10.0)
[2021-07-10] MEDS: HumaLOG INSULIN (NovoLOG) PER UNIT SC SCH ×2 (07:30→13:00)
[2021-07-10 07:54] LABS: BLOOD UREA NITROGEN 23 MG/DL (7-18); CALCIUM LEVEL 8.7 MG/DL (8.8-10.2); CARBON DIOXIDE LEVEL 27 MEQ/L (21-32); CHLORIDE LEVEL 101 MEQ/L (98-107); CREATININE FOR GFR 1.06 MG/DL (0.70-1.30); GLOMERULAR FILTRATION RATE > 60.0 (>49); GLUCOSE, FASTING 86 MG/DL (70-100); MAGNESIUM LEVEL 2.3 MG/DL (1.8-2.4); PHOSPHORUS LEVEL 3.9 MG/DL (2.5-4.9); POTASSIUM SERUM 4.2 MEQ/L (3.5-5.1); SODIUM LEVEL 134 MEQ/L (136-145)
[2021-07-10] MEDS: THIAMINE 100 MG TAB PO SCH (08:58)
[2021-07-10] MEDS: FERROUS SULFATE 325MG TAB PO SCH (08:58)
[2021-07-10] MEDS: DIVALPROEX 500 MG TAB PO SCH (08:58)
[2021-07-10] MEDS: OMEPRAZOLE 20 MG CAP PO SCH (08:58)
[2021-07-10] MEDS: FOLIC ACID 1 MG TAB PO SCH (09:00)
[2021-07-10] MEDS ORDERED: THIA100TA PO (09:35)
[2021-07-10] MEDS ORDERED: FOLI1TAB11 PO (09:35)
[2021-07-10] MEDS ORDERED: FERR1TAB8 PO (09:35)
[2021-07-10] MEDS ORDERED: METF-839 PO (09:35)
--- NOTE | 2021-07-10 12:13 | DS.PDOC ---
Discharge Summary General Date of Admission Jun 25, 2021 at 13:34 Date of Discharge 07/10/21 Discharge Summary DISCHARGE DIAGNOSES: 1. Legionella pneumonia 2. Hypoxemia, requiring new O2 therapy at home 3. Acute kidney injury, resolved the time of discharge 4. Electrolyte abnormalities, resolved at time of discharge 5. Diabetes 6. Hypertension COMPLICATIONS/CHIEF COMPLAINT: Pneumonia. HOSPITAL COURSE: Mr. Ferraro, is a 65-year-old male with past medical history of hypertension and COPD who presented to the emergency room department on 06/25/2021 at [facility] with complaints of progressively worsening shortness of breath. Based on presentation and laboratory findings he was found to be septic and tested positive for Legionella pneumonia. During hospitalization, he compl eted a course of IV antibiotics and will not be requiring antibiotics when he goes home. Due to his pneumonia he was also in COPD exacerbation that was treated with IV steroids that were eventually tapered off as well as nebulizer treatments. At the time of discharge, he will be going home with an albuterol inhaler as he refused escalation in inhaler treatment. He was unable to be liberated from oxygen supplementation, therefore will be going home with oxygen on 2 L. He underwent a nocturnal pulse ox, and will also require oxygen at bedtime. He was explained to follow-up with his primary care physician for further management of his COPD and encouraged her to discuss escalation of his inhalers. He also sustained acute kidney injury during hospitalization which was treated with fluids. He also had electrolyte abnormalities including hyperkalemia. This was secondary to his diet. He reported eating a lot of bananas while he was hospitalized. He required all tests as well as Kayexalate to bring his potassium down, and at the time of discharge his kidney function as well as electrolytes were within normal limits. His antihypertensives were resumed at discharge. He was asked to follow-up with a primary care physician to ensure that his renal function was within normal limits while he was on lisinopril/hydrochlorothiazide as well as his electrolytes. He reported he would have blood work done with his primary care physician next week. It was also noted that he had uncontrolled blood glucose levels. A hemoglobin A1c was 8.3%. Therefore he was started on Metformin 500 mg twice daily. He was encouraged to follow-up with his primary care physician for management of his diabetes. He also had microcytic anemia. He was started on iron supplementations. He has also started on folic acid supplementations due to his levels. He was encouraged to follow-up with his primary care physician discuss age-appropriate screening including colonoscopy which she was in agreement with. He did work with physical therapy who recommended home with services. However, he refused. He reports [facility] to discuss all recent course of events as well as to have appropriate follow-up. He was also encouraged to obtain all imaging results for follow-up of chronic findings. [facility] to [facility], therefore [facility] by [facility]. He will be receiving all medications on the day of discharge. DISCHARGE MEDICATIONS: Please see below. ALLERGIES: Please see below. PHYSICAL EXAMINATION ON DISCHARGE: VITAL SIGNS: Please see below. General: Lying in bed, no acute distress Head/Neck/Throat: Trachea midline, mucous membranes moist Eyes: Sclera anicteric, PERRLA Thorax: Normal respiratory effort on room air, lungs clear to auscultation bilaterally, no wheezes/rales/rhonchi Cardiovascular: Normal rate, regular rhythm, normal S1, S2; no S3, S4, rubs/gallops/murmurs Abdomen: Bowel sounds present, soft/nontender/nondistended Genitourinary: No CVA tenderness, no Snow in place Musculoskeletal: Moving all extremities, no edema Skin: Warm, dry Neurologic: AAOx3, speech fluent and goal-directed, no focal deficits, grossly intact LABORATORY DATA: Please see below. IMAGING: CT ANGIO CHEST FINDINGS: Lower neck: The thyroid gland is normal. There is no supraclavicular lymphade nopathy. Mediastinum: No abnormal masses or lymphadenopathy. Heart/thoracic aorta/pulmonary arterial tree: The heart size is normal. There is no pericardial effusion. There is calcific vascular disease of the thoracic aorta and coronary arteries. There is no thoracic aortic aneurysm or aortic dissection. There are no filling defects in the pulmonary arterial tree. Upper abdomen: Fatty liver infiltration. Calcific vascular disease of the abdominal aorta. Spleen measures 12.6 cm in axial dimension. There are small cysts in both kidneys indeterminate by density. Thoracic esophagus: Normal. Chest wall and axilla: There is mild bilateral gynecomastia. There are few reactive axillary lymph nodes bilaterally. There are no significant bony abnormalities of the chest. Lung parenchyma: There is dense airspace consolidation in the upper lobe of the left lung centered in the lingula. There is chronic interstitial lung disease with posterior basilar subpleural reticulation and a few areas of honeycombing. There is posterior pleural thickening bilaterally. There are no significant pleural effusions. IMPRESSION: 1. Lingular lobar pneumonia. 2. Chronic interstitial lung disease. 3. No evidence of pulmonary emboli. 4. Calcific vascular disease of the thoracoabdominal aorta and coronary arteries. 5. Fatty liver infiltration. 6. Mild splenomegaly. 7. Other findings as noted. PROGNOSIS: Good ACTIVITY: As tolerated DISCHARGE INSTRUCTIONS: 1. Asked patient follow with us primary care physician for above-mentioned reasons DISCHARGE CONDITION: Stable TIME SPENT ON DISCHARGE: 30 minutes. Vital Signs/I&Os Vital Signs Date Time Temp Pulse Resp B/P (MAP) Pulse Ox O2 Delivery O2 Flow Rate FiO2 07/10/21 06:00 97.1 96 19 109/52 (71) 91 Nasal Cannula 2.0 I&O- Last 24 Hours up to 6 AM 07/10/21 06:00 Intake Total 1080 ml Output Total 1300 ml Balance -220 ml Laboratory Data Labs 24H Laboratory Tests 2 07/09/21 14:40: Anion Gap 9, Glomerular Filtration Rate 53.3, Calcium Level 9.1, Phosphorus Level 5.2H, Magnesium Level 2.4 07/09/21 16:49: Bedside Glucose (Misc Panel) 120H 07/09/21 20:18: Bedside Glucose (Misc Panel) 99 07/10/21 06:31: Anion Gap 6L, Glomerular Filtration Rate > 60.0, Calcium Level 8.7L, Phosphorus Level 3.9#, Magnesium Level 2.3, Nucleated Red Blood Cells % (auto) 0.0 07/10/21 11:26: Bedside Glucose (Misc Panel) 83 CBC/BMP Laboratory Tests 07/09/21 14:40 07/10/21 06:31 FSBS Laboratory Tests Test 07/09/21 16:49 07/09/21 20:18 07/10/21 11:26 Range/Units Bedside Glucose (Misc Panel) 120 99 83 80-115 MG/DL Discharge Medications Scheduled Cholecalciferol (Vitamin D3) (Vitamin D3) 10 Mcg Tablet, 20 MCG PO DAILY, (Reported) Divalproex Sodium (Depakote) 500 Mg Tablet.dr, 500 MG PO BID, (Reported) Ferrous Sulfate (Ferrous Sulfate) 325 Mg Tablet, 325 MG PO DAILY Folic Acid (Folic Acid) 1 Mg Tablet, 1 MG PO DAILY Lisinopril/Hydrochlorothiazide (Lisinopril-Hctz 20-25 mg Tab) 1 Each Tablet, 4 TAB PO DAILY, (Reported) [facility] 2 TABS DAILY, PT SAYS 4 TABS DAILY Metformin HCl (Metformin HCl) 500 Mg Tablet, 1 TAB PO BID Omeprazole (Omeprazole) 20 Mg Capsule.dr, 20 MG PO BID, (Reported) Rosuvastatin Calcium (Rosuvastatin Calcium) 5 Mg Tablet, 5 MG PO QHS, (Reported) Thiamine Hcl (Vitamin B-1) 100 Mg Tablet, 100 MG PO DAILY Tiotropium Br/Olodaterol HCl (Stiolto Respimat Inhal Roy) 4 Gm Mist.inhal, 2 PUFFS IH DAILY, (Reported) Scheduled PRN Albuterol Sulfate (Ventolin Hfa) 18 Gm Hfa.aer.ad, 2 PUFFS INH QID PRN for SOB/WHEEZING, (Reported) Allergies Coded Allergies: No Known Allergies (Unverified , 06/25/21) LAURA WOODSON M.D. Jul 10, 2021 12:13
== END 2021-07-10 14:20 | disposition home or self-care (01) | DRG 871 ==
LOC: M ED 11:36 → M ED INP 13:34 → ENRESERV 16:35 → M MSPAV 18:05 → M PCU 06-27 19:46 → M MS5PR 06-30 14:27
PROVIDERS: ADMIT Internal Medicine; ATTEND Internal Medicine
DX: A41.9 Sepsis, unspecified organism (principal); J18.9 Pneumonia, unspecified organism; A48.1 Legionnaires' disease; N17.9 Acute kidney failure, unspecified; J44.1 Chronic obstructive pulmonary disease with (acute) exacerbation; J44.0 Chronic obstructive pulmonary disease with (acute) lower respiratory infection; E87.1 Hypo-osmolality and hyponatremia; I10 Essential (primary) hypertension; Z20.822 Contact with and (suspected) exposure to COVID-19; Z79.899 Other long term (current) drug therapy; J96.01 Acute respiratory failure with hypoxia; D64.9 Anemia, unspecified; R65.20 Severe sepsis without septic shock; Z72.3 Lack of physical exercise; E11.9 Type 2 diabetes mellitus without complications; E87.5 Hyperkalemia

== ENCOUNTER → 2023-05-09 | Outpatient (CLI) | payer MEDICARE, OTHER ==
[~2023-05-09] MED LIST: CHOL400T PO; DEPA1TAB3 PO; DIPH-435 PO; FERR1TAB8 PO; FOLI1TAB11 PO; LISI20TA37 PO; METF-839 PO; OMEP1CAP73 PO; ROSU5TAB5 PO; STIO1AER IH; THIA100TA PO; VENTAER INH; [UNRECOGNIZED DRUG - REMARK] INH
== END ==
LOC: M RAD 14:16
PROVIDERS: ATTEND Nurse Practitioner Family
DX: Z12.2 Encounter for screening for malignant neoplasm of respiratory organs (principal); F17.218 Nicotine dependence, cigarettes, with other nicotine-induced disorders; J44.9 Chronic obstructive pulmonary disease, unspecified; R91.8 Other nonspecific abnormal finding of lung field

== ENCOUNTER → 2024-05-01 | Outpatient (CLI) | payer OTHER, MEDICARE ==
[~2024-05-01] MED LIST changes: +ROSU5TAB40 PO; -ROSU5TAB5 PO
== END ==
LOC: M RAD 11:43
PROVIDERS: ATTEND Internal Medicine
DX: N18.9 Chronic kidney disease, unspecified (principal); N28.1 Cyst of kidney, acquired; K76.0 Fatty (change of) liver, not elsewhere classified

== ENCOUNTER → 2024-09-09 | Outpatient (CLI) | payer OTHER, MEDICARE ==
[~2024-09-09] MED LIST changes: -ROSU5TAB40 PO; +ROSU5TAB49 PO
== END ==
LOC: M RAD 13:02
PROVIDERS: ATTEND Internal Medicine
DX: Z12.2 Encounter for screening for malignant neoplasm of respiratory organs (principal); Z87.891 Personal history of nicotine dependence; J44.9 Chronic obstructive pulmonary disease, unspecified; J43.9 Emphysema, unspecified; J47.9 Bronchiectasis, uncomplicated; J98.4 Other disorders of lung

== ENCOUNTER → 2024-11-11 | Outpatient (REF) | payer OTHER, MEDICARE ==
[2024-11-11 18:12] LABS: PERCENT SATURATION 7.3 % (19.7-50.0)
== END ==
LOC: M LAB REF 17:25
PROVIDERS: ATTEND Internal Medicine Nephrology
DX: D50.9 Iron deficiency anemia, unspecified (principal)

== ENCOUNTER → 2024-12-17 | Outpatient (CLI) | payer OTHER, MEDICARE | LOC: M RAD 08:52 | PROVIDERS: ATTEND Internal Medicine | DX: N18.30 Chronic kidney disease, stage 3 unspecified (principal); N28.1 Cyst of kidney, acquired; N20.0 Calculus of kidney ==

== ENCOUNTER → 2025-01-26 | Outpatient (CLI) | payer MEDICARE, OTHER ==
[2025-01-26 12:15] LABS: HEMOGLOBIN A1c 7.1 % (4.0-6.0)
== END ==
LOC: M LAB 09:58
PROVIDERS: ATTEND Urology
DX: N52.9 Male erectile dysfunction, unspecified (principal)